=== PATIENT | male | born 1950 | race Caucasian/White ===

== ENCOUNTER 2021-12-07 03:47 | Observation (INO) | payer MEDICARE, OTHER ==
--- NOTE | 2021-12-07 03:59 | ERPHSYRPT ---
- History of Present Illness Source: patient, family Exam Limitations: clinical condition Timing/Duration: day(s), worse (Several days) Severity of Dyspnea-Max: moderate Severity of Dyspnea-Current: moderate Possible Cause: occasional episodes Modifying Factors: Improves With: coughing, oxygen, rest Associated Symptoms: cough, wheezing Hx Influenza Vaccination/Date Given: Yes Hx Pneumococcal Vaccination/Date Given: No <SONIA DODGE - Last Filed: 12/07/21 06:38> <JOE DONNELLY - Last Filed: 12/07/21 07:45> - History of Present Illness Time Seen by Provider: 12/07/21 03:55 Physician History: This is a 71-year-old white male patient of Nohemy Herring nurse practitioner who has a history of oxygen dependent COPD and wears 3 L of oxygen via nasal cannula chronically. Patient states for last several days he has had worsening shortness of breath. Last evening and early this morning symptoms were worse. He does not have significant chest pain. He has no abdominal pain. He has not had a fever. He has no nausea vomiting or diarrhea symptoms. He does have a cough and some wheezing present (SONIA DODGE) Allergies/Adverse Reactions: No Known Drug Allergies Allergy (Verified 12/07/21 04:10) Home Medications: Albuterol/Ipratropium 3ml Neb* [DUONEB 0.5-3 MG/3 ml Neb] 3 ml IH Q6H PRN PRN 12/07/21 [History] Fluticasone/Umeclidin/Vilanter [Trelegy Ellipta 200-62.5-25] 1 each IH DAILY 12/07/21 [History] Latanoprost [Xalatan] 2.5 ml OP HS 12/07/21 [History] Lisinopril/Hydrochlorothiazide [Lisinopril-Hctz 20-12.5 mg Tab] 1 each PO BID 12/07/21 [History] Montelukast Sodium 10 mg [Singulair 10 MG] 10 mg PO DAILY 12/07/21 [History] Vit C/E/Zn/Coppr/Lutein/Zeaxan [Preservision Areds 2 Softgel] 1 each PO DAILY 12/07/21 [History] Travel Risk - International Travel Have you traveled outside of the country in past 3 weeks: No - Coronavirus Screening Are you exhibiting any of the following symptoms?: Yes Symptoms: Cough: New Onset, Shortness of Breath Close contact with a COVID-19 positive Pt in past 14-21 Days: No <SONIA DODGE - Last Filed: 12/07/21 06:38> - Review of Systems Constitutional: No Symptoms Eyes: No Symptoms Ears, Nose, & Throat: No Symptoms Respiratory: Cough, Dyspnea, Wheezing Cardiac: No Symptoms Abdominal/Gastrointestinal: No Symptoms Genitourinary Symptoms: No Symptoms Musculoskeletal: No Symptoms Skin: No Symptoms Neurological: No Symptoms Psychological: No Symptoms Endocrine: No Symptoms Hematologic/Lymphatic: No Symptoms Immunological/Allergic: No Symptoms All Other Systems: Reviewed and Negative <SONIA DODGE - Last Filed: 12/07/21 06:38> - Past Medical History Pertinent Past Medical History: Yes Neurological History: No Pertinent History ENT History: Cataracts, Macular Degeneration Cardiac History: No Pertinent History Respiratory History: Pneumonia Endocrine Medical History: No Pertinent History Musculoskeletal History: Arthritis GI Medical History: No Pertinent History History: No Pertinent History Psycho-Social History: No Pertinent History Male Reproductive Disorders: No Pertinent History - Past Surgical History Past Surgical History: Yes Neuro Surgical History: No Pertinent History Cardiac: No Pertinent History Respiratory: No Pertinent History Gastrointestinal: No Pertinent History Genitourinary: No Pertinent History Musculoskeletal: No Pertinent History Male Surgical History: No Pertinent History - Social History Smoking Status: Current every day smoker Exposure to second hand smoke: Yes Drug Use: none <SONIA DODGE - Last Filed: 12/07/21 06:38> - Physical Exam General Appearance: moderate distress, alert, anxiety Eye Exam: PERRL/EOMI, post op pupil defect (L) Ears, Nose, Throat Exam: hearing grossly normal, normal ENT inspection, normal pharynx Neck Exam: normal inspection, non-tender, supple, full range of motion Respiratory Exam: chest tenderness, respiratory distress, airway intact, wheezing (Expiratory, bilateral) Cardiovascular/Chest Exam: normal heart sounds, regular rate/rhythm Abdominal/Gastrointestinal Exam: soft, normal bowel sounds, No tenderness Rectal Exam: not done Extremity Exam: non-tender, normal range of motion, normal inspection Neurologic Exam: alert, oriented x 3, cooperative, body care manager II-XII nml as tested, normal mood/affect, nml cerebellar function, nml station & gait, sensation nml Skin Exam: normal color, warm, dry Lymphatic Exam: No adenopathy SpO2 Interpretation: normal O2 Delivery: Aerosol Mask <SONIA DODGE - Last Filed: 12/07/21 06:38> - Nursing Vital Signs Nursing Vital Signs: Initial Vital Signs Temperature 98.1 F 12/07/21 03:48 Pulse Rate 104 H 12/07/21 03:48 Respiratory Rate 22 12/07/21 03:48 Blood Pressure 160/93 12/07/21 03:48 O2 Sat by Pulse Oximetry 88 L 12/07/21 03:48 Pain Scale Pain Intensity 0 - Course Nursing assessment & vital signs reviewed: Yes EKG Interpreted by Me: RATE (100), Sinus Rhythm, NORMAL AXIS, NORMAL INTERVALS, NORMAL QRS, NORMAL ST-T, Other (No acute ischemic changes on today's EKG) <SONIA DODGE - Last Filed: 12/07/21 06:38> - Radiology Exams Chest X-ray Interpretation: Reviewed by me, Infiltrates, Other (atelectasis ) - CT Exams Chest CT Interpretation: Tele-radiologist Report, No PE, Other (Infultrates, RUL Nodule) <JOE DONNELLY - Last Filed: 12/07/21 07:45> Ordered Tests: Active Orders 24 hr Category Date Time Status EKG-ER Only STAT Care 12/07/21 03:59 Active IV Insertion STAT Care 12/07/21 03:59 Active Pulse Oximetry (ED) STAT Care 12/07/21 03:59 Active CHEST 1 VIEW (PORTABLE) Stat Exams 12/07/21 03:59 Taken CHEST WITH CONTRAST [CT] Stat Exams 12/07/21 05:12 Taken CBC W DIFF Stat Lab 12/07/21 04:05 Completed CMP Stat Lab 12/07/21 04:05 Completed D-DIMER QUANTITATIVE Stat Lab 12/07/21 04:05 Completed NT PRO BNP Stat Lab 12/07/21 04:05 Completed PROTIME WITH INR Stat Lab 12/07/21 04:05 Completed TROPONIN Q4H Lab 12/07/21 04:05 Completed TROPONIN Q4H Lab 12/07/21 08:00 Ordered TROPONIN Q4H Lab 12/07/21 12:00 Ordered Respiratory Therapy Assessment DAILY RT 12/07/21 04:03 Active Medication Summary Generic Name Dose Route Start Last Admin Trade Name Rita PRN Reason Stop Dose Admin Sodium Chloride 500 mls @ 100 mls/hr 12/07/21 06:00 12/07/21 06:20 Sodium Chloride 0.9% 500 Ml IV 01/06/22 05:59 100 mls/hr .Q5H NICA Administration Piperacillin Sod/Tazobactam 100 mls @ 200 mls/hr 12/07/21 07:10 12/07/21 07:23 Sod 4.5 gm/ Sodium Chloride IV 12/07/21 07:39 200 mls/hr STAT ONE Administration Discontinued Medications Generic Name Dose Route Start Last Admin Trade Name Rita PRN Reason Stop Dose Admin Albuterol Sulfate 2.5 mg 12/07/21 06:32 12/07/21 06:42 Albuterol Sulfate 2.5 Mg/3 Ml Neb 12/07/21 06:33 2.5 mg STAT ONE Administration Albuterol Sulfate Confirm 12/07/21 06:35 Albuterol Sulfate 2.5 Mg/3 Ml Neb Administered 12/07/21 06:36 Dose 2.5 mg IH .STK-MED ONE Albuterol/Ipratropium 3 ml 12/07/21 04:02 12/07/21 03:50 Ipratropium/Albuterol Sulfate 3 Ml Ampul.Neb 12/07/21 04:03 3 ml STAT ONE Administration Methylprednisolone Sodium 0 mg 12/07/21 04:00 12/07/21 04:08 Succinate 125 mg/ Sterile IV 12/07/21 04:01 125 mg Water 2 ml STAT ONE Administration Sodium Chloride Confirm 12/07/21 07:21 Sodium Chloride 100ml Mini-Bag Plus Administered 12/07/21 07:22 Dose 100 mls @ ud IV .STK-MED ONE Lorazepam 1 mg 12/07/21 05:45 12/07/21 06:18 Lorazepam 2 Mg/1 Ml 2 Mg Vial IV 12/07/21 05:46 Not Given STAT ONE Lorazepam Confirm 12/07/21 05:51 Lorazepam 2 Mg/1 Ml 2 Mg Vial Administered 12/07/21 05:52 Dose 2 mg .ROUTE .STK-MED ONE Methylprednisolone Sodium Succinate Confirm 12/07/21 04:08 Methylprednis Sod Succ 125 Mg/2 Ml Vial Administered 12/07/21 04:09 Dose 125 mg .ROUTE .STK-MED ONE Piperacillin Sod/Tazobactam Sod Confirm 12/07/21 07:20 Piperacillin/Tazobactam Sodium 4.5 Gm Vial Administered 12/07/21 07:21 Dose 4.5 gm IV .STK-MED ONE Sterile Water Confirm 12/07/21 04:07 Water For Injection,Sterile 10 Ml Vial Administered 12/07/21 04:08 Dose 10 ml IJ .STK-MED ONE Lab/Rad Data: Laboratory Result Diagrams 12/07/21 04:05 12/07/21 04:05 Laboratory Results 12/07/21 12/07/21 12/07/21 Range/Units 05:00 04:05 04:05 WBC (4.0-10.5) x10^3/uL RBC (4.1-5.6) x10^6/uL Hgb (12.5-18.0) g/dL Hct (42-50) % MCV (78-100) fL MCH (26-32) pg MCHC (32-36) g/dL RDW (11.5-14.0) % Plt Count (150-450) x10^3/uL MPV (7.5-11.0) fL Gran % (36.0-66.0) % Immature Gran % (Auto) (0.00-0.4) % Nucleat RBC Rel Count (0.00-0.1) % Eos # (Auto) (0-0.5) x10^3/uL Immature Gran # (Auto) (0.00-0.03) x10^3u/L Absolute Lymphs (auto) (1.0-4.6) x10^3/uL Absolute Monos (auto) (0.0-1.3) x10^3/uL Absolute Nucleated RBC (0.00-0.01) x10^3u/L Lymphocytes % (24.0-44.0) % Monocytes % (0.0-12.0) % Eosinophils % (0.00-5.0) % Basophils % (0.0-0.4) % Absolute Granulocytes (1.4-6.9) x10^3/uL Basophils # (0-0.4) x10^3/uL PT 11.4 (9.4-12.5) SECONDS INR 1.08 (0.8-3.0) D-Dimer 1.44 H* (0.0-0.50) mg/L Sodium (137-145) mmol/L Potassium (3.5-5.1) mmol/L Chloride (98-107) mmol/L Carbon Dioxide (22-30) mmol/L Anion Gap (5-15) MEQ/L BUN (9-20) mg/dL Creatinine (0.66-1.25) mg/dL Estimated GFR ML/MIN Glucose (74-106) mg/dL Calcium (8.4-10.2) mg/dL Total Bilirubin (0.2-1.3) mg/dL AST (17-59) U/L ALT (0-50) U/L Alkaline Phosphatase (38-126) U/L Troponin I < 0.012 (0.000-0.034) ng/mL NT-Pro-B Natriuret Pep (0-900) pg/mL Serum Total Protein (6.3-8.2) g/dL Albumin (3.5-5.0) g/dL Influenza Type A Ag NEGATIVE (NEGATIVE) Influenza Type B Ag NEGATIVE (NEGATIVE) RSV (PCR) NEGATIVE (Negative) SARS-CoV-2 (PCR) NEGATIVE (NEGATIVE) 12/07/21 12/07/21 Range/Units 04:05 04:05 WBC 10.8 H (4.0-10.5) x10^3/uL RBC 4.62 (4.1-5.6) x10^6/uL Hgb 15.0 (12.5-18.0) g/dL Hct 45.3 (42-50) % MCV 98.1 (78-100) fL MCH 32.5 H (26-32) pg MCHC 33.1 (32-36) g/dL RDW 12.2 (11.5-14.0) % Plt Count 186 (150-450) x10^3/uL MPV 8.8 (7.5-11.0) fL Gran % 74.7 H (36.0-66.0) % Immature Gran % (Auto) 0.6 H (0.00-0.4) % Nucleat RBC Rel Count 0.0 (0.00-0.1) % Eos # (Auto) 0.71 H (0-0.5) x10^3/uL Immature Gran # (Auto) 0.06 H (0.00-0.03) x10^3u/L Absolute Lymphs (auto) 1.24 (1.0-4.6) x10^3/uL Absolute Monos (auto) 0.63 (0.0-1.3) x10^3/uL Absolute Nucleated RBC 0.00 (0.00-0.01) x10^3u/L Lymphocytes % 11.5 L (24.0-44.0) % Monocytes % 5.8 (0.0-12.0) % Eosinophils % 6.6 H (0.00-5.0) % Basophils % 0.8 (0.0-0.4) % Absolute Granulocytes 8.08 H (1.4-6.9) x10^3/uL Basophils # 0.09 (0-0.4) x10^3/uL PT (9.4-12.5) SECONDS INR (0.8-3.0) D-Dimer (0.0-0.50) mg/L Sodium 134 L (137-145) mmol/L Potassium 4.1 (3.5-5.1) mmol/L Chloride 97 L (98-107) mmol/L Carbon Dioxide 31 H (22-30) mmol/L Anion Gap 10.3 (5-15) MEQ/L BUN 16 (9-20) mg/dL Creatinine 0.91 (0.66-1.25) mg/dL Estimated GFR > 60.0 ML/MIN Glucose 117 H (74-106) mg/dL Calcium 9.0 (8.4-10.2) mg/dL Total Bilirubin 0.80 (0.2-1.3) mg/dL AST 24 (17-59) U/L ALT 19 (0-50) U/L Alkaline Phosphatase 107 (38-126) U/L Troponin I (0.000-0.034) ng/mL NT-Pro-B Natriuret Pep 74.1 (0-900) pg/mL Serum Total Protein 7.4 (6.3-8.2) g/dL Albumin 4.1 (3.5-5.0) g/dL Influenza Type A Ag (NEGATIVE) Influenza Type B Ag (NEGATIVE) RSV (PCR) (Negative) SARS-CoV-2 (PCR) (NEGATIVE) - Progress Progress: improved Air Movement: fair Blood Culture(s) Obtained: Yes Counseled pt/family regarding: lab results, diagnosis, need for follow-up, rad results <SONIA DODGE - Last Filed: 12/07/21 06:38> - Progress Progress: re-examined Antibiotics given: Yes Discussed with Dr.: Avinash Will see patient in: hospital (observation) Counseled pt/family regarding: lab results, diagnosis, need for follow-up, rad results <JOE DONNELLY - Last Filed: 12/07/21 07:45> - Progress Progress Note: 12/07/21 05:48 Chest x-ray shows bibasilar scarring versus atelectasis. Medical decision making: This patient presents with shortness of breath. He has a significantly elevated D-dimer. He initially refused the CTA of the chest. After discussing the test with the patient, it turns out that he has a fear of being in enclosed spaces. I gave him the option of not performing a CT of the chest but to have him sign a refusal of test form. I also gave him the option of anticoagulating him today and tomorrow until he is able to obtain a VQ scan on 12/08/2021. I also gave him the option of not doing either test. I advised against not doing any test because he could have a pulmonary embolus, pneumonia or other acute cardiopulmonary process not seen on the chest x-ray. He opted for the CTA of the chest and to receive Ativan prior to obtaining the test. 12/07/21 06:38 Patient care transferred to Dr. Donnelly at 640. He will follow-up on the CTA of the chest and make final disposition. (SONIA DODGE) 12/07/21 06:52 Pt taken over at change of shift from Dr. Dodge, after introduction, discussion of pending imaging read, and current findings and symptom course. Pt is stable and improving. 12/07/21 07:41 Discussed with family and Dr. Vianney covering, and will place pt in on Obs for Tx COPD exacerbation - and advised to f/u PMD for RUL Nodule on CT. 12/07/21 07:43 Pt admission/Obs rationale is that he has a new increased O2 requirement and signs for infection, persisting elevated heart rate during ER observation period of 3-4 hours. (JOE DONNELLY) - Departure Departure Disposition: Home Critical Care Time: No <SONIA DODGE - Last Filed: 12/07/21 06:38> - Departure Departure Disposition: Observation Critical Care Time: No <JOE DONNELLY - Last Filed: 12/07/21 07:45> - Departure Clinical Impression: COPD exacerbation, Rt lung nodule Condition: Stable Referrals: SHE HERRING NP [Primary Care Provider] - Follow up/PCP as directed Instructions: Chronic Obstructive Pulmonary Disease
[2021-12-07] MEDS ORDERED: solu-MEDROL 125 MG, Sterile H2O 10 ml 2 ML IV ONE ×2 (04:00)
[2021-12-07] MEDS ORDERED: DUONEB 0.5-3 MG/3 ml Neb IH ONE (04:02)
[2021-12-07] MEDS ORDERED: Sterile H2O 10 ml IJ ONE (04:07)
[2021-12-07] MEDS ORDERED: solu-MEDROL ONE (04:08)
[2021-12-07 04:38] LABS: Absolute Neutrophil Ct (ANC) 8.08 x10^3/uL (1.4-6.9); Basophil (Absolute #) 0.09 x10^3/uL (0-0.4); Eosinophil % 6.6 % (0.00-5.0); Eosinophil (Absolute #) 0.71 x10^3/uL (0-0.5); Hematocrit 45.3 % (42-50); Lymphocyte (Absolute #) 1.24 x10^3/uL (1.0-4.6); Lymphocytes % 11.5 % (24.0-44.0); Mean Cell Volume 98.1 fL (78-100); Mean Corpuscular Hemoglobin 32.5 pg (26-32); Mean Corpuscular Hgb Concent. 33.1 g/dL (32-36); Mean Platelet Volume 8.8 fL (7.5-11.0); Monocyte (Absolute #) 0.63 x10^3/uL (0.0-1.3); Monocytes % 5.8 % (0.0-12.0); Neutrophil % 74.7 % (36.0-66.0); Platelet Count 186 x10^3/uL (150-450); Red Blood Count 4.62 x10^6/uL (4.1-5.6); Red Cell Distribution Width 12.2 % (11.5-14.0); White Blood Count 10.8 x10^3/uL (4.0-10.5)
[2021-12-07 04:59] LABS: ALBUMIN 4.1 g/dL (3.5-5.0); ALKALINE PHOSPHATASE 107 U/L (38-126); ANION GAP 10.3 MEQ/L (5-15); BLOOD UREA NITROGEN 16 mg/dL (9-20); CHLORIDE 97 mmol/L (98-107); Carbon Dioxide 31 mmol/L (22-30); Creatinine 1 0.91 mg/dL (0.66-1.25); EST GLOMERULAR FILTRATION RATE > 60.0 ML/MIN; Glucose 117 mg/dL (74-106); NT PRO BNP 74.1 pg/mL (0-900); Potassium 4.1 mmol/L (3.5-5.1); SGOT/AST 24 U/L (17-59); SGPT/ALT 19 U/L (0-50); SODIUM 134 mmol/L (137-145); Total Protein 7.4 g/dL (6.3-8.2)
[2021-12-07 05:02] LABS: INR 1.08 (0.8-3.0); PROTIME 11.4 SECONDS (9.4-12.5)
[2021-12-07 05:04] LABS: D-DIMER QUANTITATIVE 1.44 mg/L (0.0-0.50)
[2021-12-07 05:36] LABS: INFLUENZA A NEGATIVE (NEGATIVE); INFLUENZA B NEGATIVE (NEGATIVE); RESPIRATORY SYNCTIAL VIRUS NEGATIVE (Negative); SARS-CoV-2 Xpert Express NEGATIVE (NEGATIVE)
[2021-12-07] MEDS ORDERED: Ativan 2 MG/1 ML VIAL IV ONE (05:45)
[2021-12-07] MEDS ORDERED: Ativan 2 MG/1 ML VIAL ONE (05:51)
[2021-12-07] MEDS ORDERED: Sodium Chloride 0.9% 500 ML 500 ML IV SCH (06:00)
[2021-12-07] MEDS ORDERED: PROVENTIL 2.5 MG/3 ML NEB IH ONE ×2 (06:32→06:35)
[2021-12-07] MEDS ORDERED: PIPERACILLIN/TAZOBACTAM 4.5 GM in Sodium Chloride 100ML MINI-BAG PLUS 100 ML IV ONE (07:10)
[2021-12-07] MEDS ORDERED: PIPERACILLIN/TAZOBACTAM IV ONE (07:20)
[2021-12-07] MEDS ORDERED: Sodium Chloride 100ML MINI-BAG PLUS 100 ML IV ONE (07:21)
--- NOTE | 2021-12-07 07:46 | XRAY ---
Indication: Cough and wheezing. COPD. Comparison: None Portable chest hyperinflated and clear. Heart not enlarged. Bony thorax intact with mild osteopenia and degenerative changes.
--- NOTE | 2021-12-07 07:46 | XRAY ---
Indication: Short of breath and cough. Elevated d-dimer. Multiple contiguous axial images obtained through the chest using 100 cc Isovue 370 contrast and PE protocol. Comparison: None Adequate opacification of the pulmonary arteries. However mild diffuse respiration artifact limits evaluation for pulmonary embolus. No obvious pulmonary embolus. Heart not enlarged. Aorta is mildly arteriosclerotic without aneurysm/dissection. Tiny subcarinal and distal paraesophageal calcified nodes. No pathologic mediastinal/hilar lymphadenopathy. Lungs demonstrates mild emphysema and mild bibasilar subsegmental atelectasis/scarring. 1.3 mm right upper lobe indeterminate noncalcified nodule. No infiltrate or effusion. Bony thorax demonstrates mild osteopenia and moderate degenerative changes throughout the spine. Limited upper abdomen unremarkable. Impression: 1. Respiration artifact limits evaluation for pulmonary embolus. No obvious pulmonary embolus. 2. 1.3 cm indeterminate right upper lobe noncalcified nodule. PET/CT may yield further information. Consider follow-up per Fleischner guidelines. 3. Emphysema and old granulomatous disease. 4. Osteopenia and multilevel degenerative spondylosis. Comment: Preliminary interpretation made by [facility]. No critical discrepancy.
[2021-12-07] MEDS ORDERED: Ativan 0.5 MG PO PRN (08:15)
[2021-12-07] MEDS ORDERED: Sodium Chloride 0.9% 1000 ML 1,000 ML IV SCH ×2 (08:15→10:00)
[2021-12-07] MEDS ORDERED: Ventolin Hfa MDI IH PRN (09:16)
[2021-12-07] MEDS ORDERED: DUONEB 0.5-3 MG/3 ml Neb IH PRN (09:16)
[2021-12-07] MEDS ORDERED: NON-FORMULARY ITEM (Vit C/E/Zn/Coppr/Lutein/Zeaxan [Preservision Areds 2 Softgel] 1 EACH C PO SCH (10:00)
[2021-12-07] MEDS ORDERED: NON-FORMULARY ITEM (Lisinopril/Hydrochlorothiazide [Lisinopril-Hctz 20-12.5 Mg Tab] 1 EACH PO SCH (10:00)
[2021-12-07] MEDS ORDERED: Ocuvite Tablet PO SCH (10:00)
[2021-12-07] MEDS ORDERED: NON-FORMULARY ITEM (Fluticasone/Umeclidin/Vilanter [Trelegy Ellipta 200-62.5-25] 1 EACH Bl IH SCH (10:00)
[2021-12-07] MEDS ORDERED: Singulair 10 MG PO SCH ×2 (10:00→20:00)
[2021-12-07] MEDS ORDERED: Zestril 20 MG*** 20 MG, hydroDIURIL 25 MG*** 12.5 MG PO SCH ×2 (10:00)
[2021-12-07] MEDS ORDERED: PATIENT OWN MEDICATION IH SCH ×2 (10:00→15:00)
[2021-12-07] MEDS: DUONEB 0.5-3 MG/3 ml Neb IH SCH ×4 (10:59→22:40)
[2021-12-07] MEDS: ENOXAPARIN SODIUM SQ SCH (11:18)
[2021-12-07] MEDS: Pepcid 20 MG VIAL IV SCH ×2 (11:18→21:37)
[2021-12-07] MEDS: PIPERACILLIN/TAZOBACTAM 4.5 GM in Sodium Chloride 100ML MINI-BAG PLUS 100 ML IV SCH ×2 (13:03→21:59)
[2021-12-07] MEDS: solu-MEDROL 60 MG, Sterile H2O 10 ml 2 ML IV SCH ×4 (13:03→17:23)
[2021-12-07] MEDS: HUMULIN R SQ PRN ×2 (17:23→21:48)
[2021-12-07] MEDS ORDERED: Flomax 0.4 MG PO SCH (18:00)
[2021-12-07] MEDS: Ocuvite Tablet PO SCH (21:37)
[2021-12-07] MEDS: Zestril 20 MG*** 20 MG, hydroDIURIL 25 MG*** 12.5 MG PO SCH ×2 (21:49)
[2021-12-07] MEDS ORDERED: Xalatan OP SCH (22:00)
[2021-12-08] MEDS: solu-MEDROL 60 MG, Sterile H2O 10 ml 2 ML IV SCH ×4 (00:16→06:14)
[2021-12-08] MEDS: DUONEB 0.5-3 MG/3 ml Neb IH SCH ×3 (02:30→10:51)
[2021-12-08 04:59] LABS: Hematocrit 44.4 % (42-50); Hemoglobin 14.9 g/dL (12.5-18.0); Mean Cell Volume 96.5 fL (78-100); Mean Corpuscular Hemoglobin 32.4 pg (26-32); Mean Corpuscular Hgb Concent. 33.6 g/dL (32-36); Mean Platelet Volume 8.8 fL (7.5-11.0); Platelet Count 198 x10^3/uL (150-450)
[2021-12-08 05:20] LABS: ALBUMIN 4.1 g/dL (3.5-5.0); ALKALINE PHOSPHATASE 100 U/L (38-126); ANION GAP 9.9 MEQ/L (5-15); BLOOD UREA NITROGEN 16 mg/dL (9-20); CHLORIDE 100 mmol/L (98-107); Carbon Dioxide 29 mmol/L (22-30); Creatinine 1 0.75 mg/dL (0.66-1.25); EST GLOMERULAR FILTRATION RATE > 60.0 ML/MIN; Glucose 174 mg/dL (74-106); Potassium 3.8 mmol/L (3.5-5.1); SGOT/AST 24 U/L (17-59); SGPT/ALT 20 U/L (0-50); SODIUM 135 mmol/L (137-145); Total Protein 7.3 g/dL (6.3-8.2)
[2021-12-08] MEDS: PIPERACILLIN/TAZOBACTAM 4.5 GM in Sodium Chloride 100ML MINI-BAG PLUS 100 ML IV SCH (06:13)
[2021-12-08] MEDS: Zestril 20 MG*** 20 MG, hydroDIURIL 25 MG*** 12.5 MG PO SCH ×2 (08:11)
[2021-12-08] MEDS: Ocuvite Tablet PO SCH (08:11)
[2021-12-08] MEDS: HUMULIN R SQ PRN (08:17)
[2021-12-08] MEDS: ENOXAPARIN SODIUM SQ SCH (09:56)
[2021-12-08] MEDS: Pepcid 20 MG VIAL IV SCH (09:56)
[2021-12-08] MEDS ORDERED: solu-MEDROL 60 MG, Sterile H2O 10 ml 2 ML IV SCH ×4 (10:15→18:00)
[2021-12-08 11:16] VITALS: PULSE 96
[2021-12-08 11:47] VITALS: BP 134/69; O2SAT 94
--- NOTE | 2021-12-08 15:12 | PCM.SSS ---
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 Patient states for last several days he has had worsening shortness of breath. Last evening and early this morning symptoms were worse. He does not have significant chest pain. He has no abdominal pain. He has not had a fever. He has no nausea vomiting or diarrhea symptoms. He does have a cough and some wheezing present - Review of Systems Constitutional: No Fever, No Chills Eyes: No Symptoms Ears, Nose, & Throat: No Symptoms Respiratory: Cough, Orthopnea, Short Of Breath Cardiac: No Chest Pain, No Edema, No Syncope Abdominal/Gastrointestinal: No Abdominal Pain, No Nausea, No Vomiting, No Diarrhea Genitourinary Symptoms: No Dysuria Musculoskeletal: No Back Pain, No Neck Pain Skin: No Rash Neurological: No Dizziness, No Focal Weakness, No Sensory Changes Psychological: Anxiety Endocrine: No Symptoms Hematologic/Lymphatic: No Symptoms Immunological/Allergic: No Symptoms Medications & Allergies Home Medications: Home Medication List Albuterol 8 gm Mdi Hfa [Ventolin Hfa MDI] 8 gm IH Q4H PRN PRN 12/07/21 [History Confirmed 12/07/21] Albuterol/Ipratropium 3ml Neb* [DUONEB 0.5-3 MG/3 ml Neb] 3 ml IH Q6H PRN PRN 12/07/21 [History Confirmed 12/07/21] Fluticasone/Umeclidin/Vilanter [Trelegy Ellipta 200-62.5-25] 1 each IH DAILY 12/07/21 [History Confirmed 12/07/21] Latanoprost [Xalatan] 2.5 ml OP HS 12/07/21 [History Confirmed 12/07/21] Lisinopril/Hydrochlorothiazide [Lisinopril-Hctz 20-12.5 mg Tab] 1 each PO BID 12/07/21 [History Confirmed 12/07/21] Montelukast Sodium 10 mg [Singulair 10 MG] 10 mg PO DAILY 12/07/21 [History Confirmed 12/07/21] Tamsulosin HCl 0.4 mg [Flomax 0.4 MG] 0.4 mg PO DAILY 12/07/21 [History Confirmed 12/07/21] Vit C/E/Zn/Coppr/Lutein/Zeaxan [Preservision Areds 2 Softgel] 1 each PO BID 12/07/21 [History Confirmed 12/07/21] Hydroxyzine HCl 25 mg [Atarax 25 mg] 25 mg PO QID PRN #60 tablet 12/08/21 [Rx] Levofloxacin [Levofloxacin 500 MG Tablet] 500 mg PO DAILY 7 Days #7 tablet 12/08/21 [Rx] Methylprednisolone Packet [Medrol Dosepack] 1 pkt PO UD #1 packet 12/08/21 [Rx] Allergies/Adverse Reactions: Allergies Allergy/AdvReac Type Severity Reaction Status Date / Time No Known Drug Allergies Allergy Verified 12/07/21 04:10 - Past Medical History Past Medical History: Yes Neurological History: No Pertinent History ENT History: Cataracts, Macular Degeneration Cardiac History: No Pertinent History, Hypertension Respiratory History: COPD, Emphysema Endocrine Medical History: No Pertinent History Musculoskelatal History: No Pertinent History GI Medical History: No Pertinent History, GERD History: No Pertinent History Pyscho-Social History: No Pertinent History Male Reproductive Disorders: Prostate Problems - Past Surgical History Past Surgical History: Yes Neuro Surgical History: No Pertinent History Cardiac History: No Pertinent History Respiratory Surgery: No Pertinent History GI Surgical History: No Pertinent History Genitourinary Surgical Hx: No Pertinent History Musculskeletal Surgical Hx: No Pertinent History Male Surgical History: No Pertinent History Other Surgical History: colonoscopy - Social History Smoking Status: Current every day smoker How long have you smoked: 50+ Exposure to second hand smoke: Yes Alcohol: None Drug Use: none - Physical Exam Vital Signs: Vital Signs - 24 hr Temp Pulse Resp BP Pulse Ox 12/08/21 11:37 98.2 F 96 H 16 134/69 94 L 12/08/21 10:53 96 H 20 96 12/08/21 07:29 98.0 F 97 H 16 161/74 94 L 12/08/21 07:12 88 18 98 12/08/21 04:00 97.9 F 87 18 140/76 96 10/10/22 02:30 87 18 96 12/07/21 23:56 98.4 F 104 H 22 123/58 94 L 12/07/21 22:40 87 20 94 L 12/07/21 20:00 98.0 F 100 H 22 148/67 92 L 12/07/21 19:02 91 H 20 95 General Appearance: no apparent distress, alert Neurologic Exam: alert, oriented x 3, cooperative, normal mood/affect, nml cerebellar function, nml station & gait, sensation nml, No motor deficits Eye Exam: PERRL/EOMI, eyes nml inspection Ears, Nose, Throat Exam: normal ENT inspection, TMs normal, pharynx normal, moist mucous membranes Neck Exam: normal inspection, non-tender, supple, full range of motion Respiratory Exam: diminished breath sounds, crackles/rales, rhonchi, wheezing, No respiratory distress Cardiovascular Exam: regular rate/rhythm, normal heart sounds, normal peripheral pulses Gastrointestinal/Abdomen Exam: soft, normal bowel sounds, No tenderness, No mass Back Exam: normal inspection, normal range of motion, No CVA tenderness, No vertebral tenderness Extremity Exam: normal inspection, normal range of motion, pelvis stable Skin Exam: normal color, warm, dry, No rash Lymphatic Exam: No adenopathy Results - Labs Lab/Micro Results: Lab Results-Last 24 Hours 12/07/21 12/07/21 12/08/21 Range/Units 16:09 21:10 04:47 WBC 15.0 H (4.0-10.5) x10^3/uL RBC 4.60 (4.1-5.6) x10^6/uL Hgb 14.9 (12.5-18.0) g/dL Hct 44.4 (42-50) % MCV 96.5 (78-100) fL MCH 32.4 H (26-32) pg MCHC 33.6 (32-36) g/dL RDW 12.0 (11.5-14.0) % Plt Count 198 (150-450) x10^3/uL MPV 8.8 (7.5-11.0) fL Sodium (137-145) mmol/L Potassium (3.5-5.1) mmol/L Chloride (98-107) mmol/L Carbon Dioxide (22-30) mmol/L Anion Gap (5-15) MEQ/L BUN (9-20) mg/dL Creatinine (0.66-1.25) mg/dL Estimated GFR ML/MIN Glucose (74-106) mg/dL POC Glucometer 206 H 246 H (74 to 106) mg/dL Calcium (8.4-10.2) mg/dL Total Bilirubin (0.2-1.3) mg/dL AST (17-59) U/L ALT (0-50) U/L Alkaline Phosphatase (38-126) U/L Serum Total Protein (6.3-8.2) g/dL Albumin (3.5-5.0) g/dL Procalcitonin (0.030-0.080) ng/mL 12/08/21 12/08/21 12/08/21 Range/Units 04:47 04:47 07:55 WBC (4.0-10.5) x10^3/uL RBC (4.1-5.6) x10^6/uL Hgb (12.5-18.0) g/dL Hct (42-50) % MCV (78-100) fL MCH (26-32) pg MCHC (32-36) g/dL RDW (11.5-14.0) % Plt Count (150-450) x10^3/uL MPV (7.5-11.0) fL Sodium 135 L (137-145) mmol/L Potassium 3.8 (3.5-5.1) mmol/L Chloride 100 (98-107) mmol/L Carbon Dioxide 29 (22-30) mmol/L Anion Gap 9.9 (5-15) MEQ/L BUN 16 (9-20) mg/dL Creatinine 0.75 (0.66-1.25) mg/dL Estimated GFR > 60.0 ML/MIN Glucose 174 H (74-106) mg/dL POC Glucometer 163 H (74 to 106) mg/dL Calcium 9.0 (8.4-10.2) mg/dL Total Bilirubin 0.40 (0.2-1.3) mg/dL AST 24 (17-59) U/L ALT 20 (0-50) U/L Alkaline Phosphatase 100 (38-126) U/L Serum Total Protein 7.3 (6.3-8.2) g/dL Albumin 4.1 (3.5-5.0) g/dL Procalcitonin 0.065 (0.030-0.080) ng/mL 12/08/21 Range/Units 11:45 WBC (4.0-10.5) x10^3/uL RBC (4.1-5.6) x10^6/uL Hgb (12.5-18.0) g/dL Hct (42-50) % MCV (78-100) fL MCH (26-32) pg MCHC (32-36) g/dL RDW (11.5-14.0) % Plt Count (150-450) x10^3/uL MPV (7.5-11.0) fL Sodium (137-145) mmol/L Potassium (3.5-5.1) mmol/L Chloride (98-107) mmol/L Carbon Dioxide (22-30) mmol/L Anion Gap (5-15) MEQ/L BUN (9-20) mg/dL Creatinine (0.66-1.25) mg/dL Estimated GFR ML/MIN Glucose (74-106) mg/dL POC Glucometer 122 H (74 to 106) mg/dL Calcium (8.4-10.2) mg/dL Total Bilirubin (0.2-1.3) mg/dL AST (17-59) U/L ALT (0-50) U/L Alkaline Phosphatase (38-126) U/L Serum Total Protein (6.3-8.2) g/dL Albumin (3.5-5.0) g/dL Procalcitonin (0.030-0.080) ng/mL Accuchecks Date 12/08/21 Date 12/08/21 Time 11:47 Time 08:13 - Radiology Impressions Radiology Exams & Impressions: Radiology Procedures Category Date Time Status CHEST 1 VIEW (PORTABLE) Stat Exams 12/07/21 03:59 Completed CHEST WITH CONTRAST [CT] Stat Exams 12/07/21 05:12 Completed Assessment/Plan (1) COPD exacerbation Status: Acute Assessment & Plan: Chief Complaint Diagnosis COPD EXACERBATION, RUL NODULE Allergies Allergy/AdvReac Type Severity Reaction Status Date / Time No Known Drug Allergies Allergy Verified 12/07/21 04:10 Vital Signs (Last 24 hours) Temp Pulse Resp BP Pulse Ox 12/08/21 11:37 98.2 F 96 H 16 134/69 94 L 12/08/21 10:53 96 H 20 96 12/08/21 07:29 98.0 F 97 H 16 161/74 94 L 12/08/21 07:12 88 18 98 12/08/21 04:00 97.9 F 87 18 140/76 96 12/08/21 02:30 87 18 96 12/07/21 23:56 98.4 F 104 H 22 123/58 94 L 12/07/21 22:40 87 20 94 L 12/07/21 20:00 98.0 F 100 H 22 148/67 92 L 12/07/21 19:02 91 H 20 95 Home Medications Medication Instructions Recorded Confirmed Last Taken Type Albuterol 8 gm Mdi Hfa 8 gm IH Q4H PRN PRN 12/07/21 12/07/21 Unknown History [Ventolin Hfa MDI] Albuterol/Ipratropium 3ml Neb* 3 ml IH Q6H PRN PRN 12/07/21 12/07/21 12/06/21 History [DUONEB 0.5-3 MG/3 ml Neb] Fluticasone/Umeclidin/Vilanter 1 each IH DAILY 12/07/21 12/07/21 12/06/21 Histor y [Trelegy Ellipta 200-62.5-25] Latanoprost [Xalatan] 2.5 ml OP HS 12/07/21 12/07/21 12/06/21 History Lisinopril/Hydrochlorothiazide 1 each PO BID 12/07/21 12/07/21 12/07/21 08:00 History [Lisinopril-Hctz 20-12.5 mg Tab] Montelukast Sodium 10 mg 10 mg PO DAILY 12/07/21 12/07/21 12/06/21 History [Singulair 10 MG] Tamsulosin HCl 0.4 mg [Flomax 0.4 mg PO DAILY 12/07/21 12/07/21 12/06/21 History 0.4 MG] Vit C/E/Zn/Coppr/Lutein/Zeaxan 1 each PO BID 12/07/21 12/07/2112/07/22 08:00 History [Preservision Areds 2 Softgel] Hydroxyzine HCl 25 mg [Atarax 25 mg PO QID PRN #60 tablet 12/08/21 Unknown Rx 25 mg] Levofloxacin [Levofloxacin 500 500 mg PO DAILY 7 Days #7 tablet 12/08/21 Unknown Rx MG Tablet] Methylprednisolone Packet 1 pkt PO UD #1 packet 12/08/21 Unknown Rx [Medrol Dosepack] Current Medications Discontinued Medications Generic Name Dose Route Start Last Admin Trade Name Freq PRN Reason Stop Dose Admin Albuterol Sulfate 2.5 mg 12/07/21 06:32 12/07/21 06:42 Albuterol Sulfate 2.5 Mg/3 Ml [facility] 12/07/21 06:33 2.5 mg STAT ONE Administration Albuterol Sulfate Confirm 12/07/21 06:35 Albuterol Sulfate 2.5 Mg/3 Ml Neb Administered 12/07/21 06:36 Dose 2.5 mg IH .STK-MED ONE Albuterol/Ipratropium 3 ml 12/07/21 04:02 12/07/21 03:50 Ipratropium/Albuterol Sulfate 3 Ml Ampul.[facility] 12/07/21 04:03 3 ml STAT ONE Administration Albuterol/Ipratropium 3 ml 12/07/21 11:00 12/08/21 10:51 Ipratropium/Albuterol Sulfate 3 Ml Ampul.[facility] 01/06/22 10:59 3 ml Q4HRT NICA Administration Methylprednisolone Sodium 0 mg 12/07/21 04:00 12/07/21 04:08 Succinate 125 mg/ Sterile IV 12/07/21 04:01 125 mg Water 2 ml STAT ONE Administration Methylprednisolone Sodium 0 mg 12/07/21 12:00 12/08/21 06:14 Succinate 60 mg/ Sterile Water IV 01/06/22 11:59 60 mg 2 ml Q6HT NICA Administration Lisinopril 20 mg/ 0 mg 12/07/21 10:00 12/07/21 11:50 Hydrochlorothiazide 12.5 mg PO 01/06/22 09:59 Not Given BID NICA Lisinopril 20 mg/ 0 mg 12/07/21 20:00 12/08/21 08:11 Hydrochlorothiazide 12.5 mg PO 01/06/22 09:59 20 mg BID@0800,2000 NICA Administration Methylprednisolone Sodium 0 mg 12/08/21 10:15 12/08/21 12:06 Succinate 60 mg/ Sterile Water IV 01/07/22 10:14 Not Given 2 ml Q12H NICA Methylprednisolone Sodium 0 mg 12/08/21 18:00 Succinate 60 mg/ Sterile Water IV 01/07/22 10:14 2 ml 0600,1800 NICA Enoxaparin Sodium 40 mg 12/07/21 10:00 12/08/21 09:56 Enoxaparin Sodium 40 Mg/0.4 Ml Syringe SQ 01/06/22 09:59 40 mg DAILY NICA Administration Famotidine 20 mg 12/07/21 10:00 12/08/21 09:56 Famotidine 20 Mg/1 Vial IV 01/06/22 09:59 20 mg Q12HT NICA Administration Sodium Chloride 500 mls @ 100 mls/hr 12/07/21 06:00 12/07/21 06:20 Sodium Chloride 0.9% 500 Ml IV 01/06/22 05:59 100 mls/hr .Q5H NICA Administration Piperacillin Sod/Tazobactam 100 mls @ 200 mls/hr 12/07/21 07:10 12/07/21 07:23 Sod 4.5 gm/ Sodium Chloride IV 12/07/21 07:39 200 mls/hr STAT ONE Administration Sodium Chloride Confirm 12/07/21 07:21 Sodium Chloride 100ml Mini-Bag Plus Administered 12/07/21 07:22 Dose 100 mls @ ud IV .STK-MED ONE Sodium Chloride 1,000 mls @ 50 mls/hr 12/07/21 08:15 12/07/21 17:22 Sodium Chloride 0.9% 1000 Ml IV 01/06/22 08:14 50 mls/hr .Q20H NICA Administration Piperacillin Sod/Tazobactam 100 mls @ 200 mls/hr 12/07/21 14:00 12/08/21 06:13 Sod 4.5 gm/ Sodium Chloride IV 01/06/22 13:59 200 mls/hr Q8HT NICA Administration Insulin Human Regular 0 unit 12/07/21 08:15 12/08/21 08:17 Insulin Regular, Human 1 Unit SQ 01/06/22 08:14 3 unit UD PRN Administration HYPERGLYCEMIA Latanoprost 0 ml 12/07/21 22:00 12/08/21 00:22 Latanoprost 2.5 Ml Bottle OP 01/06/22 21:59 1 ml HS NICA Administration Lorazepam 1 mg 12/07/21 05:45 12/07/21 06:18 Lorazepam 2 Mg/1 Ml 2 Mg Vial IV 12/07/21 05:46 Not Given STAT ONE Lorazepam Confirm 12/07/21 05:51 Lorazepam 2 Mg/1 Ml 2 Mg Vial Administered 12/07/21 05:52 Dose 2 mg .ROUTE .STK-MED ONE Lorazepam 0.5 mg 12/07/21 08:15 Lorazepam 0.5 Mg Tablet PO 01/06/22 08:14 Q6H PRN PRN ANXIETY Methylprednisolone Sodium Succinate Confirm 12/07/21 04:08 Methylprednis Sod Succ 125 Mg/2 Ml Vial Administered 12/07/21 04:09 Dose 125 mg .ROUTE .STK-MED ONE Montelukast Sodium 10 mg 12/07/21 10:00 12/07/21 11:50 Montelukast Sodium 10 Mg Tablet PO 01/06/22 09:59 Not Given DAILY [facility] Montelukast Sodium 10 mg 12/07/21 20:00 12/07/21 21:51 Montelukast Sodium 10 Mg Tablet PO 01/06/22 09:59 10 mg DAILY@1999 [facility] Administration Multivitamins/Minerals 1 tab 12/07/21 10:00 12/07/21 11:50 Beta-Carotene(A) W-C And E/Min 1 Tab Tablet PO 01/06/22 09:59 Not Given DAILY [facility] Multivitamins/Minerals 1 tab 12/07/21 20:00 12/08/21 08:11 Beta-Carotene(A) W-C And E/Min 1 Tab Tablet PO 01/06/22 19:59 1 tab BID@08,1999 [facility] Administration Patient Own Med : 0 each 12/07/21 10:00 12/07/21 11:50 Trelegy IH 01/06/22 09:59 Not Given DAILY [facility] Patient Own Medication 0 each 12/07/21 15:00 12/07/21 14:53 Patient Own Med Misc IH 01/06/22 14:59 1 each DAILY NICA Administration Piperacillin Sod/Tazobactam Sod Confirm 12/07/21 07:20 Piperacillin/Tazobactam Sodium 4.5 Gm Vial Administered 12/07/21 07:21 Dose 4.5 gm IV .STK-MED ONE Sterile Water Confirm 12/07/21 04:07 Water For Injection,Sterile 10 Ml Vial Administered 12/07/21 04:08 Dose 10 ml IJ .STK-MED ONE Tamsulosin HCl 0.4 mg 12/07/21 18:00 12/07/21 17:23 Tamsulosin Hcl 0.4 Mg Cap PO 01/06/22 17:59 0.4 mg DAILY@1800 NICA Administration Intake & Output (Last 24 hours) 12/06/21 12/07/21 12/08/21 12/09/21 11:59 11:59 11:59 11:59 Intake Total 480 3072 585 Balance 480 3072 585 Weight 96.1 kg Laboratory Results (Last 24 hours) 12/08/21 12/08/21 12/08/21 11:45 07:55 04:47 WBC RBC Hgb Hct MCV MCH MCHC RDW Plt Count MPV Sodium Potassium Chloride Carbon Dioxide Anion Gap BUN Creatinine Estimated GFR Glucose POC Glucometer 122 H 163 H Calcium Total Bilirubin AST ALT Alkaline Phosphatase Serum Total Protein Albumin Procalcitonin 0.065 12/08/21 12/08/21 12/07/21 04:47 04:47 21:10 WBC 15.0 H RBC 4.60 Hgb 14.9 Hct 44.4 MCV 96.5 MCH 32.4 H MCHC 33.6 RDW 12.0 Plt Count 198 MPV 8.8 Sodium 135 L Potassium 3.8 Chloride 100 Carbon Dioxide 29 Anion Gap 9.9 BUN 16 Creatinine 0.75 Estimated GFR > 60.0 Glucose 174 H POC Glucometer 246 H Calcium 9.0 Total Bilirubin 0.40 AST 24 ALT 20 Alkaline Phosphatase 100 Serum Total Protein 7.3 Albumin 4.1 Procalcitonin 12/07/21 16:09 WBC RBC Hgb Hct MCV MCH MCHC RDW Plt Count MPV Sodium Potassium Chloride Carbon Dioxide Anion Gap BUN Creatinine Estimated GFR Glucose POC Glucometer 206 H Calcium Total Bilirubin AST ALT Alkaline Phosphatase Serum Total Protein Albumin Procalcitonin Orders (Last 24 hours) Category Date Time Status Discharge Routine Discharge 12/08/21 Ordered Discharge/Telephone Order Routine Discharge 12/08/21 Active CBC AM.LAB Lab 12/08/21 04:47 Completed CMP AM.LAB Lab 12/08/21 04:47 Completed POCT GLUCOSE Stat Lab 12/07/21 16:09 Completed POCT GLUCOSE Stat Lab 12/07/21 21:10 Completed POCT GLUCOSE Stat Lab 12/08/21 07:55 Completed POCT GLUCOSE Stat Lab 12/08/21 11:45 Completed PROCALCITONIN Urgent Lab 12/08/21 04:47 Completed Beta-Carotene(A) W-C & E/Min [Ocuvite Tablet] Med 12/07/21 20:00 Discontinued 1 tab PO BID@0800,1999 Latanoprost [Xalatan] Med 12/07/21 22:00 Discontinued 0 ml OP HS Lisinopril 20 mg [Zestril 20 MG] 20 mg Med 12/07/21 20:00 Discontinued Hydrochlorothiazide 25 mg [hydroDIURIL 25 MG] 12. 5 mg PO BID@0800,2000 Methylprednis Sod Succ 125 mg* [solu-MEDROL] 60 mg Med 12/08/21 18:00 Discontinued Water For Injection,Sterile [Sterile H2O 10 ml] 2 ml IV 0600,1800 Methylprednis Sod Succ 125 mg* [solu-MEDROL] 60 mg Med 12/08/21 10:15 Discontinued Water For Injection,Sterile [Sterile H2O 10 ml] 2 ml IV Q12H Montelukast Sodium 10 mg [Singulair 10 MG] Med 12/07/21 20:00 Discontinued 10 mg PO DAILY@2000 Patient Own Med [Patient Own Medication] Med 12/07/21 15:00 Discontinued See Dose Instructions IH DAILY Tamsulosin HCl 0.4 mg [Flomax 0.4 MG] Med 12/07/21 18:00 Discontinued 0.4 mg PO DAILY@1800 Respiratory MDI UD RT 12/07/21 14:54 Completed Patient Care Notes (Last 24 hours) 12/08/21 09:55 (created 12/08/21 10:24) Case Management Note by Yoselyn Ellison SPOKE WITH DR FLORES AND UPDATED ON PT STATUS. REPORTS THAT HE WILL BE HERE AROUND NOON TO ROUND. N/O TO DECREASE STEROID TO 60MG IV Q12H. Initialized on 12/08/21 10:24 - END OF NOTE Code(s): J44.1 - CHRONIC OBSTRUCTIVE PULMONARY DISEASE W (ACUTE) EXACERBATION (2) Hypertension Status: Acute Qualifiers: Hypertension type: primary hypertension Qualified Code(s): I10 - Essential (primary) hypertension Code(s): I10 - ESSENTIAL (PRIMARY) HYPERTENSION (3) Anxiety about health Status: Acute Code(s): F41.8 - OTHER SPECIFIED ANXIETY DISORDERS Hospital Summary - Hospital Course Hospital Course: Chief Complaint Diagnosis COPD EXACERBATION, RUL NODULE Allergies Allergy/AdvReac Type Severity Reaction Status Date / Time No Known Drug Allergies Allergy Verified 12/07/21 04:10 Vital Signs (Last 24 hours) Temp Pulse Resp BP Pulse Ox 12/08/21 11:37 98.2 F 96 H 16 134/69 94 L 12/08/21 10:53 96 H 20 96 12/08/21 07:29 98.0 F 97 H 16 161/74 94 L 12/08/21 07:12 88 18 98 12/08/21 04:00 97.9 F 87 18 140/76 96 12/08/21 02:30 87 18 96 12/07/21 23:56 98.4 F 104 H 22 123/58 94 L 12/07/21 22:40 87 20 94 L 12/07/21 20:00 98.0 F 100 H 22 148/67 92 L 12/07/21 19:02 91 H 20 95 Home Medications Medication Instructions Recorded Confirmed Last Taken Type Albuterol 8 gm Mdi Hfa 8 gm IH Q4H PRN PRN 12/07/21 12/07/21 Unknown History [Ventolin Hfa MDI] Albuterol/Ipratropium 3ml Neb* 3 ml IH Q6H PRN PRN 12/07/21 12/07/21 12/06/21 History [DUONEB 0.5-3 MG/3 ml Neb] Fluticasone/Umeclidin/Vilanter 1 each IH DAILY 12/07/21 12/07/21 12/06/21 History [Trelegy Ellipta 200-62.5-25] Latanoprost [Xalatan] 2.5 ml OP HS 12/07/21 12/07/21 12/06/21 History Lisinopril/Hydrochlorothiazide 1 each PO BID 12/07/21 12/07/21 12/07/21 08:00 History [Lisinopril-Hctz 20-12.5 mg Tab] Montelukast Sodium 10 mg 10 mg PO DAILY 12/07/21 12/07/21 12/06/21 History [Singulair 10 MG] Tamsulosin HCl 0.4 mg [Flomax 0.4 mg PO DAILY 12/07/21 12/07/21 12/06/21 History 0.4 MG] Vit C/E/Zn/Coppr/Lutein/Zeaxan 1 each PO BID 12/07/21 12/07/21 12/07/21 08:00 History [Preservision Areds 2 Softgel] Hydroxyzine HCl 25 mg [Atarax 25 mg PO QID PRN #60 tablet 12/08/21 Unknown Rx 25 mg] Levofloxacin [Levofloxacin 500 500 mg PO DAILY 7 Days #7 tablet 12/08/21 Unknown Rx MG Tablet] Methylprednisolone Packet 1 pkt PO UD #1 packet 12/08/21 Unknown Rx [Medrol Dosepack] Current Medications Discontinued Medications Generic Name Dose Route Start Last Admin Trade Name Freq PRN Reason Stop Dose Admin Albuterol Sulfate 2.5 mg 12/07/21 06:32 12/07/21 06:42 Albuterol Sulfate 2.5 Mg/3 Ml Neb 12/07/21 06:33 2.5 mg STAT ONE Administration Albuterol Sulfate Confirm 12/07/21 06:35 Albuterol Sulfate 2.5 Mg/3 Ml Neb Administered 12/07/21 06:36 Dose 2.5 mg IH .STK-MED ONE Albuterol/Ipratropium 3 ml 12/07/21 04:02 12/07/21 03:50 Ipratropium/Albuterol Sulfate 3 Ml Ampul.Neb IH 12/07/21 04:03 3 ml STAT ONE Administration Albuterol/Ipratropium 3 ml 12/07/21 11:00 12/08/21 10:51 Ipratropium/Albuterol Sulfate 3 Ml Ampul.Neb IH 01/06/22 10:59 3 ml Q4HRT NICA Administration Methylprednisolone Sodium 0 mg 12/07/21 04:00 12/07/21 04:08 Succinate 125 mg/ Sterile IV 12/07/21 04:01 125 mg Water 2 ml STAT ONE Administration Methylprednisolone Sodium 0 mg 12/07/21 12:00 12/08/21 06:14 Succinate 60 mg/ Sterile Water IV 01/06/22 11:59 60 mg 2 ml Q6HT NICA Administration Lisinopril 20 mg/ 0 mg 12/07/21 10:00 12/07/21 11:50 Hydrochlorothiazide 12.5 mg PO 01/06/22 09:59 Not Given BID NICA Lisinopril 20 mg/ 0 mg 12/07/21 20:00 12/08/21 08:11 Hydrochlorothiazide 12.5 mg PO 01/06/22 09:59 20 mg BID@0800,2000 NICA Administration Methylprednisolone Sodium 0 mg 12/08/21 10:15 12/08/21 12:06 Succinate 60 mg/ Sterile Water IV 01/07/22 10:14 Not Given 2 ml Q12H NICA Methylprednisolone Sodium 0 mg 12/08/21 18:00 Succinate 60 mg/ Sterile Water IV 01/07/22 10:14 2 ml 0600,1800 NICA Enoxaparin Sodium 40 mg 12/07/21 10:00 12/08/21 09:56 Enoxaparin Sodium 40 Mg/0.4 Ml Syringe SQ 01/06/22 09:59 40 mg DAILY NICA Administration Famotidine 20 mg 12/07/21 10:00 12/08/21 09:56 Famotidine 20 Mg/1 Vial IV 01/06/22 09:59 20 mg Q12HT NICA Administration Sodium Chloride 500 mls @ 100 mls/hr 12/07/21 06:00 12/07/21 06:20 Sodium Chloride 0.9% 500 Ml IV 01/06/22 05:59 100 mls/hr .Q5H NICA Administration Piperacillin Sod/Tazobactam 100 mls @ 200 mls/hr 12/07/21 07:10 12/07/21 07:23 Sod 4.5 gm/ Sodium Chloride IV 12/07/21 07:39 200 mls/hr STAT ONE Administration Sodium Chloride Confirm 12/07/21 07:21 Sodium Chloride 100ml Mini-Bag Plus Administered 12/07/21 07:22 Dose 100 mls @ ud IV .STK-MED ONE Sodium Chloride 1,000 mls @ 50 mls/hr 12/07/21 08:15 12/07/21 17:22 Sodium Chloride 0.9% 1000 Ml IV 01/06/22 08:14 50 mls/hr .Q20H NICA Administration Piperacillin Sod/Tazobactam 100 mls @ 200 mls/hr 12/07/21 14:00 12/08/21 06:13 Sod 4.5 gm/ Sodium Chloride IV 01/06/22 13:59 200 mls/hr Q8HT NICA Administration Insulin Human Regular 0 unit 12/07/21 08:15 12/08/21 08:17 Insulin Regular, Human 1 Unit SQ 01/06/22 08:14 3 unit UD PRN Administration HYPERGLYCEMIA Latanoprost 0 ml 12/07/21 22:00 12/08/21 00:22 Latanoprost 2.5 Ml Bottle OP 01/06/22 21:59 1 ml HS NICA Administration Lorazepam 1 mg 12/07/21 05:45 12/07/21 06:18 Lorazepam 2 Mg/1 Ml 2 Mg Vial IV 12/07/21 05:46 Not Given STAT ONE Lorazepam Confirm 12/07/21 05:51 Lorazepam 2 Mg/1 Ml 2 Mg Vial Administered 12/07/21 05:52 Dose 2 mg .ROUTE .STK-MED ONE Lorazepam 0.5 mg 12/07/21 08:15 Lorazepam 0.5 Mg Tablet PO 01/06/22 08:14 Q6H PRN PRN ANXIETY Methylprednisolone Sodium Succinate Confirm 12/07/21 04:08 Methylprednis Sod Succ 125 Mg/2 Ml Vial Administered 12/07/21 04:09 Dose 125 mg .ROUTE .STK-MED ONE Montelukast Sodium 10 mg 12/07/21 10:00 12/07/21 11:50 Montelukast Sodium 10 Mg Tablet PO 01/06/22 09:59 Not Given DAILY NICA Montelukast Sodium 10 mg 12/07/21 20:00 12/07/21 21:51 Montelukast Sodium 10 Mg Tablet PO 01/06/22 09:59 10 mg DAILY@1999 [facility] Administration Multivitamins/Minerals 1 tab 12/07/21 10:00 12/07/21 11:50 Beta-Carotene(A) W-C And E/Min 1 Tab Tablet PO 01/06/22 09:59 Not Given DAILY [facility] Multivitamins/Minerals 1 tab 12/07/21 20:00 12/08/21 08:11 Beta-Carotene(A) W-C And E/Min 1 Tab Tablet PO 01/06/22 19:59 1 tab BID@0800,1999 [facility] Administration Patient Own Med : 0 each 12/07/21 10:00 12/07/21 11:50 Trelegy IH 01/06/22 09:59 Not Given DAILY [facility] Patient Own Medication 0 each 12/07/21 15:00 12/07/21 14:53 Patient Own Med Misc IH 01/06/22 14:59 1 each DAILY [facility] Administration Piperacillin Sod/Tazobactam Sod Confirm 12/07/21 07:20 Piperacillin/Tazobactam Sodium 4.5 Gm Vial Administered 12/07/21 07:21 Dose 4.5 gm IV .STK-MED ONE Sterile Water Confirm 12/07/21 04:07 Water For Injection,Sterile 10 Ml Vial Administered 12/07/21 04:08 Dose 10 ml IJ .STK-MED ONE Tamsulosin HCl 0.4 mg 12/07/21 18:00 12/07/21 17:23 Tamsulosin Hcl 0.4 Mg Cap PO 01/06/22 17:59 0.4 mg DAILY@1800 [facility] Administration Intake & Output (Last 24 hours) 12/06/21 12/07/21 12/08/21 12/09/21 11:59 11:59 11:59 11:59 Intake Total 480 3072 585 Balance 480 3072 585 Weight 96.1 kg Laboratory Results (Last 24 hours) 12/08/21 12/08/21 12/08/21 11:45 07:55 04:47 WBC RBC Hgb Hct MCV MCH MCHC RDW Plt Count MPV Sodium Potassium Chloride Carbon Dioxide Anion Gap BUN Creatinine Estimated GFR Glucose POC Glucometer 122 H 163 H Calcium Total Bilirubin AST ALT Alkaline Phosphatase Serum Total Protein Albumin Procalcitonin 0.065 12/08/21 12/08/21 12/07/21 04:47 04:47 21:10 WBC 15.0 H RBC 4.60 Hgb 14.9 Hct 44.4 MCV 96.5 MCH 32.4 H MCHC 33.6 RDW 12.0 Plt Count 198 MPV 8.8 Sodium 135 L Potassium 3.8 Chloride 100 Carbon Dioxide 29 Anion Gap 9.9 BUN 16 Creatinine 0.75 Estimated GFR > 60.0 Glucose 174 H POC Glucometer 246 H Calcium 9.0 Total Bilirubin 0.40 AST 24 ALT 20 Alkaline Phosphatase 100 Serum Total Protein 7.3 Albumin 4.1 Procalcitonin 12/07/21 16:09 WBC RBC Hgb Hct MCV MCH MCHC RDW Plt Count MPV Sodium Potassium Chloride Carbon Dioxide Anion Gap BUN Creatinine Estimated GFR Glucose POC Glucometer 206 H Calcium Total Bilirubin AST ALT Alkaline Phosphatase Serum Total Protein Albumin Procalcitonin Orders (Last 24 hours) Category Date Time Status Discharge Routine Discharge 12/08/21 Ordered Discharge/Telephone Order Routine Discharge 12/08/21 Active CBC AM.LAB Lab 12/08/21 04:47 Completed CMP AM.LAB Lab 12/08/21 04:47 Completed POCT GLUCOSE Stat Lab 12/07/21 16:09 Completed POCT GLUCOSE Stat Lab 12/07/21 21:10 Completed POCT GLUCOSE Stat Lab 12/08/21 07:55 Completed POCT GLUCOSE Stat Lab 12/08/21 11:45 Completed PROCALCITONIN Urgent Lab 12/08/21 04:47 Completed Beta-Carotene(A) W-C & E/Min [Ocuvite Tablet] Med 12/07/21 20:00 Discontinued 1 tab PO BID@799,1999 Latanoprost [Xalatan] Med 12/07/21 22:00 Discontinued 0 ml OP HS Lisinopril 20 mg [Zestril 20 MG] 20 mg Med 12/07/21 20:00 Discontinued Hydrochlorothiazide 25 mg [hydroDIURIL 25 MG] 12. 5 mg PO BID@0800,1999 Methylprednis Sod Succ 125 mg* [solu-MEDROL] 60 mg Med 12/08/21 18:00 Discontinued Water For Injection,Sterile [Sterile H2O 10 ml] 2 ml IV 0600,1800 Methylprednis Sod Succ 125 mg* [solu-MEDROL] 60 mg Med 12/08/21 10:15 Discontinued Water For Injection,Sterile [Sterile H2O 10 ml] 2 ml IV Q12H Montelukast Sodium 10 mg [Singulair 10 MG] Med 12/07/21 20:00 Discontinued 10 mg PO DAILY@2000 Patient Own Med [Patient Own Medication] Med 12/07/21 15:00 Discontinued See Dose Instructions IH DAILY Tamsulosin HCl 0.4 mg [Flomax 0.4 MG] Med 12/07/21 18:00 Discontinued 0.4 mg PO DAILY@1800 Respiratory MDI UD RT 12/07/21 14:54 Completed Patient Care Notes (Last 24 hours) 12/08/21 09:55 (created 12/08/21 10:24) Case Management Note by Yoselyn Ellison SPOKE WITH DR FLORES AND UPDATED ON PT STATUS. REPORTS THAT HE WILL BE HERE AROUND NOON TO ROUND. N/O TO DECREASE STEROID TO 60MG IV Q12H. Initialized on 12/08/21 10:24 - END OF NOTE - Vitals & Intake/Output Vital Signs: Vital Signs Temperature 98.2 F 12/08/21 11:37 Pulse Rate 96 H 12/08/21 11:37 Respiratory Rate 16 12/08/21 11:37 Blood Pressure 134/69 12/08/21 11:37 O2 Sat by Pulse Oximetry 94 L 12/08/21 11:37 Intake & Output: Intake & Output 12/06/21 12/07/21 12/08/21 12/09/21 11:59 11:59 11:59 11:59 Intake Total 480 3072 585 Balance 480 3072 585 Weight 96.1 kg - Lab Result Diagrams: 12/08/21 04:47 12/08/21 04:47 Lab Results-Last 24 Hrs: Lab Results-Last 24 Hours 12/07/21 12/07/21 12/08/21 Range/Units 16:09 21:10 04:47 WBC 15.0 H (4.0-10.5) x10^3/uL RBC 4.60 (4.1-5.6) x10^6/uL Hgb 14.9 (12.5-18.0) g/dL Hct 44.4 (42-50) % MCV 96.5 (78-100) fL MCH 32.4 H (26-32) pg MCHC 33.6 (32-36) g/dL RDW 12.0 (11.5-14.0) % Plt Count 198 (150-450) x10^3/uL MPV 8.8 (7.5-11.0) fL Sodium (137-145) mmol/L Potassium (3.5-5.1) mmol/L Chloride (98-107) mmol/L Carbon Dioxide (22-30) mmol/L Anion Gap (5-15) MEQ/L BUN (9-20) mg/dL Creatinine (0.66-1.25) mg/dL Estimated GFR ML/MIN Glucose (74-106) mg/dL POC Glucometer 206 H 246 H (74 to 106) mg/dL Calcium (8.4-10.2) mg/dL Total Bilirubin (0.2-1.3) mg/dL AST (17-59) U/L ALT (0-50) U/L Alkaline Phosphatase (38-126) U/L Serum Total Protein (6.3-8.2) g/dL Albumin (3.5-5.0) g/dL Procalcitonin (0.030-0.080) ng/mL 12/08/21 12/08/21 12/08/21 Range/Units 04:47 04:47 07:55 WBC (4.0-10.5) x10^3/uL RBC (4.1-5.6) x10^6/uL Hgb (12.5-18.0) g/dL Hct (42-50) % MCV (78-100) fL MCH (26-32) pg MCHC (32-36) g/dL RDW (11.5-14.0) % Plt Count (150-450) x10^3/uL MPV (7.5-11.0) fL Sodium 135 L (137-145) mmol/L Potassium 3.8 (3.5-5.1) mmol/L Chloride 100 (98-107) mmol/L Carbon Dioxide 29 (22-30) mmol/L Anion Gap 9.9 (5-15) MEQ/L BUN 16 (9-20) mg/dL Creatinine 0.75 (0.66-1.25) mg/dL Estimated GFR > 60.0 ML/MIN Glucose 174 H (74-106) mg/dL POC Glucometer 163 H (74 to 106) mg/dL Calcium 9.0 (8.4-10.2) mg/dL Total Bilirubin 0.40 (0.2-1.3) mg/dL AST 24 (17-59) U/L ALT 20 (0-50) U/L Alkaline Phosphatase 100 (38-126) U/L Serum Total Protein 7.3 (6.3-8.2) g/dL Albumin 4.1 (3.5-5.0) g/dL Procalcitonin 0.065 (0.030-0.080) ng/mL 12/08/21 Range/Units 11:45 WBC (4.0-10.5) x10^3/uL RBC (4.1-5.6) x10^6/uL Hgb (12.5-18.0) g/dL Hct (42-50) % MCV (78-100) fL MCH (26-32) pg MCHC (32-36) g/dL RDW (11.5-14.0) % Plt Count (150-450) x10^3/uL MPV (7.5-11.0) fL Sodium (137-145) mmol/L Potassium (3.5-5.1) mmol/L Chloride (98-107) mmol/L Carbon Dioxide (22-30) mmol/L Anion Gap (5-15) MEQ/L BUN (9-20) mg/dL Creatinine (0.66-1.25) mg/dL Estimated GFR ML/MIN Glucose (74-106) mg/dL POC Glucometer 122 H (74 to 106) mg/dL Calcium (8.4-10.2) mg/dL Total Bilirubin (0.2-1.3) mg/dL AST (17-59) U/L ALT (0-50) U/L Alkaline Phosphatase (38-126) U/L Serum Total Protein (6.3-8.2) g/dL Albumin (3.5-5.0) g/dL Procalcitonin (0.030-0.080) ng/mL Micro Results-Entire Visit: Accuchecks Date 12/08/21 Date 12/08/21 Time 11:47 Time 08:13 - Radiology Exams Ordered Rad Exams-Entire Visit: Radiology Procedures Category Date Time Status CHEST 1 VIEW (PORTABLE) Stat Exams 12/07/21 03:59 Completed CHEST WITH CONTRAST [CT] Stat Exams 12/07/21 05:12 Completed - Procedures and Test Procedures and Tests throughout Hospitalization: Therapy Orders & Screens 12/07/21 04:03 Respiratory Therapy Assessment DAILY Comment: 12/07/21 08:15 Oxygen Nasal Cannula 3 lpm Comment: Respiratory Therapy Consult ROUTINE Comment: Reason For Exam: 12/07/21 08:56 RT Screen per Nursing Assess ONCE Comment: Protocol Order Physician Instructions: Greater than 3 points order RT Admission Screen Reason For Exam: Triggered on Admission Diagnosis: COPD EXACERBATION, RUL NODULE Diagnosis: COPD EXACERBATION, RUL NODULE Pneumonia: No Home O2: Yes Asthma: No CHF: No Home CPAP/BIPAP: No Home Nebs/MDI: Yes Total Points: 10 12/07/21 14:54 Respiratory MDI UD Comment: trelegy- pt's own med Diagnosis: COPD EXACERBATION, RUL NODULE - Discharge Discharge Date: 12/08/21 Disposition: Home, Self-Care Condition: Stable Prescriptions: New Levofloxacin [Levofloxacin 500 MG Tablet] 500 mg PO DAILY 7 Days #7 tablet Hydroxyzine HCl 25 mg [Atarax 25 mg] 25 mg PO QID PRN #60 tablet PRN Reason: Anxiety Methylprednisolone Packet [Medrol Dosepack] 1 pkt PO UD #1 packet Continue Latanoprost [Xalatan] 2.5 ml OP HS Albuterol/Ipratropium 3ml Neb* [DUONEB 0.5-3 MG/3 ml Neb] 3 ml IH Q6H PRN PRN PRN Reason: Shortness Of Breath/Wheezing Fluticasone/Umeclidin/Vilanter [Trelegy Ellipta 200-62.5-25] 1 each IH DAILY Vit C/E/Zn/Coppr/Lutein/Zeaxan [Preservision Areds 2 Softgel] 1 each PO BID Montelukast Sodium 10 mg [Singulair 10 MG] 10 mg PO DAILY Lisinopril/Hydrochlorothiazide [Lisinopril-Hctz 20-12.5 mg Tab] 1 each PO BID Albuterol 8 gm Mdi Hfa [Ventolin Hfa MDI] 8 gm IH Q4H PRN PRN PRN Reason: Shortness Of Breath/Wheezing Tamsulosin HCl 0.4 mg [Flomax 0.4 MG] 0.4 mg PO DAILY Instructions: Exacerbation of COPD (DC) Additional Instructions: PATIENT WILL FOLLOW UP WITH DR EMILY SUTTON (PATROL INSPECTOR) IN [place] ON 01-15-22 AT 2PM. Follow up with: RAQUEL VILLRAREAL [ACTIVE STAFF] - 12/17/21 3:45 pm ANN FLORES MD [ACTIVE STAFF] - 12/15/21 2:45 pm (WILL BE SEEN AT THE [place] OFFICE) SHE SAMS NP [Primary Care Provider] - 12/17/21 10:15 am Forms: Discharge Instructions
== END 2021-12-08 14:17 | disposition home or self-care (01) ==
LOC: ED 03:47 → MED SURG 07:45
PROVIDERS: ADMIT General Practice; ATTEND General Practice
DX: J44.1 Chronic obstructive pulmonary disease with (acute) exacerbation (principal); I10 Essential (primary) hypertension; F41.8 Other specified anxiety disorders; Z72.0 Tobacco use; Z20.828 Contact with and (suspected) exposure to other viral communicable diseases; Z79.899 Other long term (current) drug therapy; Z99.81 Dependence on supplemental oxygen
CPT/HCPCS: 0241U; 36000; 36415; 71045; 71260; 80053; 82947; 83880; 84145; 84484; 85025; 85027; 85379; 85610; 93005; 94640; 94760; 96374; 99285; 93268; J1650; J1815; J2060; J2543; J2930; J7609; A9270-GY; G0378

== ENCOUNTER 2024-05-01 17:00 | Emergency (ER) | payer MEDICARE, OTHER ==
[2024-05-01] MEDS ORDERED: Sterile H2O 10 ml IJ ONE (17:20)
[2024-05-01] MEDS ORDERED: solu-MEDROL ONE (17:20)
[2024-05-01] MEDS ORDERED: Cardizem IV 50 MG/10 ML IV ONE (17:20)
[2024-05-01] MEDS: Cardizem IV 50 MG/10 ML IV ONE (17:22)
[2024-05-01] MEDS ORDERED: DUONEB 0.5-3 MG/3 ml Neb IH ONE (17:24)
[2024-05-01] MEDS: solu-MEDROL 125 MG, Sterile H2O 10 ml 2 ML IV ONE (17:32)
[2024-05-01 17:33] LABS: Absolute Neutrophil Ct (ANC) 20.88 x10^3/uL (1.78-5.38); BASOPHIL % 0.1 % (0.2-1.2); Basophil (Absolute #) 0.03 x10^3/uL (0.01-0.08); Eosinophil (Absolute #) 0 x10^3/uL (0.04-0.54); Hematocrit 37.4 % (40.1-51.0); Hemoglobin 13.2 g/dL (13.7-17.5); IMMATURE GRAN # 0.44 x10^3u/L (0.001-0.031); IMMATURE GRAN % 1.9 % (0.001-0.429); Lymphocyte (Absolute #) 0.53 x10^3/uL (1.32-3.57); Lymphocytes % 2.3 % (21.8-53.1); Mean Cell Volume 89.7 fL (79.0-92.2); Mean Corpuscular Hemoglobin 31.7 pg (25.7-32.2); Mean Corpuscular Hgb Concent. 35.3 g/dL (32.3-36.5); Mean Platelet Volume 9.4 fL (9.4-12.4); Monocyte (Absolute #) 0.71 x10^3/uL (0.30-0.82); Monocytes % 3.1 % (5.3-12.2); Neutrophil % 92.6 % (34.0-67.9); Platelet Count 169 x10^3/uL (163-337); Red Blood Count 4.17 x10^6/uL (4.63-6.08); Red Cell Distribution Width 12.9 % (11.6-14.4); White Blood Count 22.6 x10^3/uL (4.23-9.07)
[2024-05-01] MEDS ORDERED: CARDIZEM DRIP 100 MG/100 ML D5W 100 ML IV ONE (17:36)
[2024-05-01] MEDS: CARDIZEM DRIP 100 MG/100 ML D5W 100 ML IV PRN (17:37)
[2024-05-01] MEDS: DUONEB 0.5-3 MG/3 ml Neb IH ONE (17:37)
[2024-05-01 17:46] LABS: ALBUMIN 3.3 g/dL (3.5-5.0); BILIRUBIN,TOTAL 1.2 mg/dL (0.2-1.3); Calcium 8.2 mg/dL (8.4-10.2); Creatinine 1 0.86 mg/dL (0.66-1.25); EST GLOMERULAR FILTRATION RATE 90.3 ML/MIN; Potassium 4.3 mmol/L (3.5-5.1); Total Protein 5.8 g/dL (6.3-8.2)
--- NOTE | 2024-05-01 17:58 | ERPHSYRPT ---
- History of Present Illness Time Seen by Provider: 05/01/24 17:10 Source: patient Exam Limitations: no limitations Patient Subjective Stated Complaint: C/O SOB for 3-4 days Triage Nursing Assessment: Patient arrived by ambulance with a duoneb mask on. He is alert and oriented. He is SOB; RT called. Patient wears 02 @ 3L per N/C continuously at home. Edema present to BLE. Oral mucosa is dry. Scattered bruising present to BUE and BLE; patient states he fell. Skin tear from fall also noted to right elbow. Diaphoretic. Physician History: 73-year-old male history of COPD normally wears 3 L nasal cannula oxygen presents to our ED for evaluation of shortness of breath that has got progressively worse over 3 to 4 days. Patient now requires 6 L oxygen nasal cannula to feel well. Patient has a dry nonproductive cough. EKG reveals A-fib with RVR. Patient adds that he fell at home. Patient has a superficial skin te ar of the right elbow. Patient denies bony tenderness. Patient voices no other complaints or concerns at this time. Portions of this note were created with voice recognition technology. There may be grammatical, spelling, punctuation or sound alike errors Timing/Duration: today Activities at Onset: none Severity of Dyspnea-Max: moderate Severity of Dyspnea-Current: mild Possible Cause: occasional episodes Modifying Factors: Improves With: activity Allergies/Adverse Reactions: No Known Drug Allergies Allergy (Verified 05/01/24 17:04) Home Medications: Albuterol 8 gm Mdi Hfa [Ventolin Hfa MDI] 8 gm IH Q4H PRN PRN 12/07/21 [History] Albuterol/Ipratropium 3ml Neb* [DUONEB 0.5-3 MG/3 ml Neb] 3 ml IH Q6H PRN PRN 12/07/21 [History] Lisinopril/Hydrochlorothiazide [Lisinopril-Hctz 20-12.5 mg Tab] 1 each PO BID 12/07/21 [History] Montelukast Sodium 10 mg [Singulair 10 MG] 10 mg PO DAILY 12/07/21 [History] Tamsulosin HCl 0.4 mg [Flomax 0.4 MG] 0.4 mg PO DAILY 12/07/21 [History] Fluticasone/Umeclidin/Vilanter [Trelegy Ellipta 200-62.5-25] 1 inhaler PO DAILY 05/01/24 [History] Prednisone 10 mg [Deltasone 10 mg] 10 mg PO DAILY 05/01/24 [History] Hx Tetanus, Diphtheria Vaccination/Date Given: No Hx Influenza Vaccination/Date Given: Yes Hx Pneumococcal Vaccination/Date Given: No Immunizations Up to Date: Yes Travel Risk - International Travel Have you traveled outside of the country in past 3 weeks: No - Emerging Infectious Disease Are you exhibiting symptoms associated with any current EIDs: Yes Symptoms: Cough: New Onset, Fever, Shortness of Breath - Review of Systems Constitutional: No Symptoms, No Fever, No Chills Eyes: No Symptoms Ears, Nose, & Throat: No Symptoms Respiratory: No Symptoms, No Cough, No Dyspnea Cardiac: No Symptoms, No Chest Pain, No Edema, No Syncope Abdominal/Gastrointestinal: No Symptoms, No Abdominal Pain, No Nausea, No Vom iting, No Diarrhea Genitourinary Symptoms: No Symptoms, No Dysuria Musculoskeletal: No Symptoms, No Back Pain, No Neck Pain Skin: No Symptoms, No Rash Neurological: No Symptoms, No Dizziness, No Focal Weakness, No Sensory Changes Psychological: No Symptoms Endocrine: No Symptoms Hematologic/Lymphatic: No Symptoms Immunological/Allergic: No Symptoms All Other Systems: Reviewed and Negative - Past Medical History Pertinent Past Medical History: Yes Neurological History: No Pertinent History ENT History: Cataracts, Macular Degeneration Cardiac History: No Pertinent History, Hypertension Respiratory History: COPD, Emphysema Endocrine Medical History: No Pertinent History Musculoskeletal History: No Pertinent History GI Medical History: No Pertinent History, GERD History: No Pertinent History Psycho-Social History: No Pertinent History Male Reproductive Disorders: Prostate Problems - Past Surgical History Past Surgical History: Yes Neuro Surgical History: No Pertinent History Cardiac: No Pertinent History Respiratory: No Pertinent History Gastrointestinal: No Pertinent History Genitourinary: No Pertinent History Musculoskeletal: No Pertinent History Male Surgical History: No Pertinent History Other Surgical History: colonoscopy - Social History Smoking Status: Current every day smoker How long have you smoked: 50+ Exposure to second hand smoke: Yes Drug Use: none - Social Determinants of Health Will the patient participate in the screening: Declined to provide - Nursing Vital Signs Nursing Vital Signs: Initial Vital Signs Temperature 101.3 F 05/01/24 17:01 Pulse Rate 170 H 05/01/24 17:01 Respiratory Rate 36 H 05/01/24 17:01 O2 Sat by Pulse Oximetry 94 L 05/01/24 17:01 Pain Scale Pain Intensity 0 - Physical Exam General Appearance: no apparent distress, alert Eye Exam: PERRL/EOMI, eyes nml inspection Ears, Nose, Throat Exam: hearing grossly normal, normal ENT inspection Neck Exam: normal inspection, non-tender, supple, full range of motion Respiratory Exam: chest tenderness, respiratory distress, diminished breath sounds, rhonchi, other (Tachypnea) Cardiovascular/Chest Exam: normal heart sounds, tachycardia, other (A-fib with RVR) Abdominal/Gastrointestinal Exam: soft, normal bowel sounds, No tenderness, No distention, No mass Extremity Exam: non-tender, normal range of motion, normal inspection, no calf tenderness, no pedal edema, swelling (2+ pitting edema) Neurologic Exam: alert, oriented x 3, cooperative, 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, sensation nml, No motor deficits Skin Exam: normal color, warm, No dry Lymphatic Exam: No adenopathy SpO2 Interpretation: normal SpO2: 90 O2 Delivery: Room Air - Course Nursing assessment & vital signs reviewed: Yes EKG Interpreted by Me: RATE (60), A-fib, NORMAL AXIS, NORMAL INTERVALS, NORMAL QRS - CT Exams Chest CT Interpretation: Tele-radiologist Report (CT a chest negative for PE however right upper and lower lobe pneumonia as well as left lower lobe pneumonia observed.) Ordered Tests: Active Orders 24 hr Category Date Time Status [employer] STAT Care 05/01/24 17:07 Active EKG-ER Only STAT Care 05/01/24 17:06 Active IV Insertion STAT Care 05/01/24 17:06 Active Oxygen-ED Only Nasal Cannula 5 lpm Care 05/01/24 17:44 Active Pulse Oximetry (ED) STAT Care 05/01/24 17:06 Active CHEST WITH CONTRAST [CT] Stat Exams 05/01/24 18:07 Taken BLOOD CULTURE Stat Lab 05/01/24 17:25 Received CBC W DIFF Stat Lab 05/01/24 17:35 Completed CMP Stat Lab 05/01/24 17:35 Completed CULTURE,URINE Stat Lab 05/01/24 18:48 Received D-DIMER QUANTITATIVE Stat Lab 05/01/24 17:35 Completed NT PRO BNPII Stat Lab 05/01/24 17:35 Completed TROPONIN Q4H Lab 05/01/24 17:35 Completed TROPONIN Q4H Lab 05/01/24 21:15 Completed TROPONIN Q4H Lab 05/02/24 01:15 Ordered UA W/RFX UR CULTURE Stat Lab 05/01/24 18:48 Completed Medication Summary Generic Name Dose Route Start Last Admin Trade Name Freq PRN Reason Stop Dose Admin Diltiazem HCl 100 mls @ 5 mls/hr 05/01/24 17:33 05/01/24 19:40 Cardizem Drip 100 Mg/100 Ml D5w IV 05/31/24 17:32 5 mg/hr .Q20H PRN 5 mls/hr HEART RATE/ A-FIB Titration Protocol 5 MG/HR Sodium Chloride 1,000 mls @ 100 mls/hr 05/01/24 23:00 05/01/24 23:00 Sodium Chloride 0.9% 1000 Ml IV 05/31/24 22:59 100 mls/hr .Q10H NICA Administration Discontinued Medications Generic Name Dose Route Start Last Admin Trade Name Freq PRN Reason Stop Dose Admin Albuterol/Ipratropium 3 ml 05/01/24 17:06 05/01/24 17:37 Ipratropium/Albuterol Sulfate 3 Ml Ampul.Neb IH 05/01/24 17:07 3 ml STAT ONE Administration Albuterol/Ipratropium Confirm 05/01/24 17:24 Ipratropium/Albuterol Sulfate 3 Ml Ampul.Neb Administered 05/01/24 17:25 Dose 3 ml IH .STK-MED ONE Methylprednisolone Sodium 0 mg 05/01/24 17:06 05/01/24 17:32 Succinate 125 mg/ Sterile IV 05/01/24 17:07 125 mg Water 2 ml STAT ONE Administration Diltiazem HCl 10 mg 05/01/24 17:17 05/01/24 17:22 Diltiazem Hcl Iv 5 Mg/Ml Vial IV 05/01/24 17:18 10 mg STAT ONE Administration Diltiazem HCl Confirm 05/01/24 17:20 Diltiazem Hcl Iv 5 Mg/Ml Vial Administered 05/01/24 17:21 Dose 50 mg IV .STK-MED ONE Enoxaparin Sodium 80 mg 05/01/24 21:37 05/01/24 21:42 Enoxaparin Sodium 80 Mg/0.8 Ml Syringe SQ 05/01/24 21:38 80 mg STAT ONE Administration Enoxaparin Sodium Confirm 05/01/24 21:41 Enoxaparin Sodium 80 Mg/0.8 Ml Syringe Administered 05/01/24 21:42 Dose 80 mg SQ .STK-MED ONE Ceftriaxone Sodium 2 gm in 100 mls @ 200 mls/hr 05/01/24 21:35 05/01/24 22:12 Rocephin 2 Gm/100 Ml Nacl IV 05/01/24 22:04 Infused STAT ONE Infusion Azithromycin 500 mg in 250 mls @ 250 mls/hr 05/01/24 21:35 05/01/24 22:24 Zithromax 500 Mg/ 250 Ml Nacl Premix IV 05/01/24 22:34 250 mls/hr STAT STA 250 mls/hr Administration Ceftriaxone Sodium Confirm 05/01/24 21:41 Rocephin 2 Gm/100 Ml Nacl Administered 05/01/24 21:42 Dose 2 gm in 100 mls @ ud IV .STK-MED ONE Azithromycin Confirm 05/01/24 22:23 Zithromax 500 Mg/ 250 Ml Nacl Premix Administered 05/01/24 22:24 Dose 500 mg in 250 mls @ ud IV .STK-MED ONE Methylprednisolone Sodium Succinate Confirm 05/01/24 17:20 Methylprednis Sod Succ 125 Mg/2 Ml Vial Administered 05/01/24 17:21 Dose 125 mg .ROUTE .STK-MED ONE Oseltamivir Phosphate 75 mg 05/01/24 21:37 05/01/24 21:42 Oseltamivir 75 Mg Cap PO 05/01/24 21:38 75 mg STAT ONE Administration Oseltamivir Phosphate Confirm 05/01/24 21:41 Oseltamivir 75 Mg Cap Administered 05/01/24 21:42 Dose 75 mg PO .STK-MED ONE Sterile Water Confirm 05/01/24 17:20 Water For Injection,Sterile 10 Ml Vial Administered 05/01/24 17:21 Dose 10 ml IJ .STK-MED ONE Lab/Rad Data: Laboratory Result Diagrams 05/01/24 17:35 05/01/24 17:35 Laboratory Results 05/01/24 05/01/24 05/01/24 Range/Units 21:15 18:48 17:35 WBC (4.23-9.07) x10^3/uL RBC (4.63-6.08) x10^6/uL Hgb (13.7-17.5) g/dL Hct (40.1-51.0) % MCV (79.0-92.2) fL MCH (25.7-32.2) pg MCHC (32.3-36.5) g/dL RDW (11.6-14.4) % Plt Count (163-337) x10^3/uL MPV (9.4-12.4) fL Gran % (34.0-67.9) % Immature Gran % (Auto) (0.001-0.429) % Nucleat RBC Rel Count (0.00-0.2) % Eos # (Auto) (0.04-0.54) x10^3/uL Immature Gran # (Auto) (0.001-0.031) x10^3u/L Absolute Lymphs (auto) (1.32-3.57) x10^3/uL Absolute Monos (auto) (0.30-0.82) x10^3/uL Absolute Nucleated RBC (0.00-0.012) x10^3u/L Lymphocytes % (21.8-53.1) % Monocytes % (5.3-12.2) % Eosinophils % (0.8-7.0) % Basophils % (0.2-1.2) % Absolute Granulocytes (1.78-5.38) x10^3/uL Basophils # (0.01-0.08) x10^3/uL D-Dimer (0.0-0.50) mg/L Sodium (135-145) mmol/L Potassium (3.5-5.1) mmol/L Chloride (98-107) mmol/L Carbon Dioxide (22-30) mmol/L Anion Gap (5-15) MEQ/L BUN (9-20) mg/dL Creatinine (0.66-1.25) mg/dL Estimated GFR ML/MIN Glucose (74-106) mg/dL Calcium (8.4-10.2) mg/dL Total Bilirubin (0.2-1.3) mg/dL AST (17-59) U/L ALT (0-50) U/L Alkaline Phosphatase (38-126) U/L Troponin I 0.200 H* 0.095 H* (0.000-0.033) ng/mL NT-Pro-B Natriuret Pep 2390 (<300) pg/mL Serum Total Protein (6.3-8.2) g/dL Albumin (3.5-5.0) g/dL Urine Color Yellow (Yellow) Urine Appearance Clear (Clear) Urine pH 6.5 (4.6-8.0) Ur Specific [place] 1.020 (1.005-1.030) Urine Protein 100 A (Negative) Urine Glucose (UA) Negative (Negative) mg/dL Urine Ketones 15 A (Negative) Urine Blood Large A (Negative) Urine Nitrite Negative (Negative) Urine Bilirubin Negative (Negative) Urine Urobilinogen 0.2 (0.2) mg/dL Ur Leukocyte Esterase Small A (Negative) U Hyaline Cast (Auto) 3-5 A (0-2) /LPF Urine Microscopic RBC >100 A (0-5) /HPF Urine Microscopic WBC 3-5 (0-5) /HPF Ur Epithelial Cells None Seen (None Seen) /HPF Urine Bacteria None Seen (None Seen) /HPF Urine Culture Reflexed YES (NO) Influenza Type A Ag (NEGATIVE) Influenza Type B Ag (NEGATIVE) RSV (PCR) (NEGATIVE) SARS-CoV-2 (PCR) (NEGATIVE) Slides for Path Review 05/01/24 05/01/24 05/01/24 Range/Units 17:35 17:35 17:35 WBC 22.6 H (4.23-9.07) x10^3/uL RBC 4.17 L (4.63-6.08) x10^6/uL Hgb 13.2 L (13.7-17.5) g/dL Hct 37.4 L (40.1-51.0) % MCV 89.7 (79.0-92.2) fL MCH 31.7 (25.7-32.2) pg MCHC 35.3 (32.3-36.5) g/dL RDW 12.9 (11.6-14.4) % Plt Count 169 (163-337) x10^3/uL MPV 9.4 (9.4-12.4) fL Gran % 92.6 H (34.0-67.9) % Immature Gran % (Auto) 1.9 H (0.001-0.429) % Nucleat RBC Rel Count 0.0 (0.00-0.2) % Eos # (Auto) 0 L (0.04-0.54) x10^3/uL Immature Gran # (Auto) 0.44 H (0.001-0.031) x10^3u/L Absolute Lymphs (auto) 0.53 L (1.32-3.57) x10^3/uL Absolute Monos (auto) 0.71 (0.30-0.82) x10^3/uL Absolute Nucleated RBC 0.00 (0.00-0.012) x10^3u/L Lymphocytes % 2.3 L (21.8-53.1) % Monocytes % 3.1 L (5.3-12.2) % Eosinophils % 0.0 L (0.8-7.0) % Basophils % 0.1 L (0.2-1.2) % Absolute Granulocytes 20.88 H (1.78-5.38) x10^3/uL Basophils # 0.03 (0.01-0.08) x10^3/uL D-Dimer 16.95 H* (0.0-0.50) mg/L Sodium 123 L (135-145) mmol/L Potassium 4.3 (3.5-5.1) mmol/L Chloride 89 L (98-107) mmol/L Carbon Dioxide 22 (22-30) mmol/L Anion Gap 16.0 H (5-15) MEQ/L BUN 28 H (9-20) mg/dL Creatinine 0.86 (0.66-1.25) mg/dL Estimated GFR 90.3 ML/MIN Glucose 129 H (74-106) mg/dL Calcium 8.2 L (8.4-10.2) mg/dL Total Bilirubin 1.20 (0.2-1.3) mg/dL AST 34 (17-59) U/L ALT 22 (0-50) U/L Alkaline Phosphatase 80 (38-126) U/L Troponin I (0.000-0.033) ng/mL NT-Pro-B Natriuret Pep (<300) pg/mL Serum Total Protein 5.8 L (6.3-8.2) g/dL Albumin 3.3 L (3.5-5.0) g/dL Urine Color (Yellow) Urine Appearance (Clear) Urine pH (4.6-8.0) Ur Specific [place] (1.005-1.030) Urine Protein (Negative) Urine Glucose (UA) (Negative) mg/dL Urine Ketones (Negative) Urine Blood (Negative) Urine Nitrite (Negative) Urine Bilirubin (Negative) Urine Urobilinogen (0.2) mg/dL Ur Leukocyte Esterase (Negative) U Hyaline Cast (Auto) (0-2) /LPF Urine Microscopic RBC (0-5) /HPF Urine Microscopic WBC (0-5) /HPF Ur Epithelial Cells (None Seen) /HPF Urine Bacteria (None Seen) /HPF Urine Culture Reflexed (NO) Influenza Type A Ag (NEGATIVE) Influenza Type B Ag (NEGATIVE) RSV (PCR) (NEGATIVE) SARS-CoV-2 (PCR) (NEGATIVE) Slides for Path Review YES 05/01/24 Range/Units 17:25 WBC (4.23-9.07) x10^3/uL RBC (4.63-6.08) x10^6/uL Hgb (13.7-17.5) g/dL Hct (40.1-51.0) % MCV (79.0-92.2) fL MCH (25.7-32.2) pg MCHC (32.3-36.5) g/dL RDW (11.6-14.4) % Plt Count (163-337) x10^3/uL MPV (9.4-12.4) fL Gran % (34.0-67.9) % Immature Gran % (Auto) (0.001-0.429) % Nucleat RBC Rel Count (0.00-0.2) % Eos # (Auto) (0.04-0.54) x10^3/uL Immature Gran # (Auto) (0.001-0.031) x10^3u/L Absolute Lymphs (auto) (1.32-3.57) x10^3/uL Absolute Monos (auto) (0.30-0.82) x10^3/uL Absolute Nucleated RBC (0.00-0.012) x10^3u/L Lymphocytes % (21.8-53.1) % Monocytes % (5.3-12.2) % Eosinophils % (0.8-7.0) % Basophils % (0.2-1.2) % Absolute Granulocytes (1.78-5.38) x10^3/uL Basophils # (0.01-0.08) x10^3/uL D-Dimer (0.0-0.50) mg/L Sodium (135-145) mmol/L Potassium (3.5-5.1) mmol/L Chloride (98-107) mmol/L Carbon Dioxide (22-30) mmol/L Anion Gap (5-15) MEQ/L BUN (9-20) mg/dL Creatinine (0.66-1.25) mg/dL Estimated GFR ML/MIN Glucose (74-106) mg/dL Calcium (8.4-10.2) mg/dL Total Bilirubin (0.2-1.3) mg/dL AST (17-59) U/L ALT (0-50) U/L Alkaline Phosphatase (38-126) U/L Troponin I (0.000-0.033) ng/mL NT-Pro-B Natriuret Pep (<300) pg/mL Serum Total Protein (6.3-8.2) g/dL Albumin (3.5-5.0) g/dL Urine Color (Yellow) Urine Appearance (Clear) Urine pH (4.6-8.0) Ur Specific [place] (1.005-1.030) Urine Protein (Negative) Urine Glucose (UA) (Negative) mg/dL Urine Ketones (Negative) Urine Blood (Negative) Urine Nitrite (Negative) Urine Bilirubin (Negative) Urine Urobilinogen (0.2) mg/dL Ur Leukocyte Esterase (Negative) U Hyaline Cast (Auto) (0-2) /LPF Urine Microscopic RBC (0-5) /HPF Urine Microscopic WBC (0-5) /HPF Ur Epithelial Cells (None Seen) /HPF Urine Bacteria (None Seen) /HPF Urine Culture Reflexed (NO) Influenza Type A Ag POSITIVE A (NEGATIVE) Influenza Type B Ag NEGATIVE (NEGATIVE) RSV (PCR) NEGATIVE (NEGATIVE) SARS-CoV-2 (PCR) NEGATIVE (NEGATIVE) Slides for Path Review - Progress Progress: improved Air Movement: good Progress Note: I spoke to ER physician at [facility] who accepts transfer at 10:07 PM. Plan of care discussed with patient. He agrees to transfer to [facility] for further evaluation and treatment. Portions of this note were created with voice recognition technology. There may be grammatical, spelling, punctuation or sound alike errors 05/01/24 22:08 Patient is a 73-year-old male history of COPD presents to our ED via EMS for evaluation of shortness of breath. Patient normally requires 3 L oxygen nasal cannula at home. Patient reports that shortness of breath has gotten progressively worse causing him to increase the supplemental oxygen from 3 L to 6 L. On exam patient had coarse and diminished breath sounds. Blood cultures obtained. EKG revealed A-fib with RVR with a rate of 170. Patient received a Cardizem drip. Lovenox administered. Troponin ordered and resulted as positive. Troponin trending upward however patient had no chest pain. Elevated troponin likely secondary to demand ischemia from A-fib with RVR. D-dimer positive at 16. CTA chest negative for PE however the CT showed a right upper and lower lobe airspace disease as well as left lower lobe airspace disease. Blood cultures obtained. CBC revealed a leukocytosis of 26.2. Patient received 2 g Rocephin and 500 mg of azithromycin. Viral panel revealed positive for influenza A. Patient received a dose of Tamiflu. Hyponatremia at 123 observed on chemistry. IV fluids administered. Patient reassessed. Patient improved cl inically. Shortness of breath significantly better after heart rate decreased from 170-103. In light of patient's elevated troponin and the fact that we do not in ICU bed to accommodate our patient on a Cardizem drip was made to transfer to [facility]. Plan of care discussed with patient and his . They agree to transfer to [facility] for further evaluation and treatment. Patient stabilized. Temperature upon arrival was 101.3. Fever defervesced to 99.1 Portions of this note were created with voice recognition technology. There may be grammatical, spelling, punctuation or sound alike errors Complexity of problem addressed is moderate acute complicated. Critical care time is greater than 194 minutes. Immediate intervention required to prevent further deterioration. Complexity of problem addressed is extensive. Test ordered chest reviewed results analyzed and correlated clinically with history and physical exam. Management discussed with ER physician at [facility] who accepts transfer. I spoke to at 10:07 PM. Risk of complication and or risk of morbidity/mortality of patient management is high. Patient requires transfer to higher level of care. Vitals are now stable. Plan of care established for shared decision making. No social determinants of health present to impede follow-up. Portions of this note were created with voice recognition technology. There may be grammatical, spelling, punctuation or sound alike errors 05/01/24 22:42 05/01/24 22:57 Blood Culture(s) Obtained: Yes Antibiotics given: Yes Counseled pt/family regarding: lab results, diagnosis, rad results - Departure Departure Disposition: Transfer Clinical Impression: COPD exacerbation, Atrial fibrillation with RVR, COPD (chronic obstructive pulmonary disease), Hypoxia, Influenza A, Elevated troponin, Leukocytosis, Hyponatremia, Fever, Bilateral pneumonia Condition: Stable Critical Care Time: Yes Critical Care Time(excluding separately billable procedures): Critical > 194 mins Referrals: SHE SAMS NP [Primary Care Provider] - Follow up/PCP as directed Instructions: Chronic Obstructive Pulmonary Disease
[2024-05-01 18:15] LABS: INFLUENZA B NEGATIVE (NEGATIVE); RESPIRATORY SYNCTIAL VIRUS NEGATIVE (NEGATIVE); SARS-CoV-2 Xpert Express NEGATIVE (NEGATIVE)
[2024-05-01 18:24] LABS: TROPONIN 0.095 ng/mL (0.000-0.033)
[2024-05-01 18:39] LABS: INFLUENZA A POSITIVE (NEGATIVE)
[2024-05-01 19:10] LABS: Appearance Clear (Clear); Bacteria None Seen /HPF (None Seen); Bilirubin Negative (Negative); Blood Large (Negative); Epithelial Cells None Seen /HPF (None Seen); Glucose, Urine Negative (Negative); Ketones 15 (Negative); Leukocyte Esterase Small (Negative); Nitrite Negative (Negative); Ph 6.5 (4.6-8.0); Protein,Urine Dip 100 (Negative); RBC >100 /HPF (0-5); Urobilinogen 0.2 mg/dL (0.2)
[2024-05-01 20:45] LABS: Slide Review 1 YES
[2024-05-01] MEDS ORDERED: ROCEPHIN 2 GM/100 ML NACL 2 GM/100 ML IVPB IV ONE (21:41)
[2024-05-01] MEDS ORDERED: Tamiflu 75MG Capsule PO ONE (21:41)
[2024-05-01] MEDS ORDERED: ENOXAPARIN SODIUM SQ ONE (21:41)
[2024-05-01] MEDS: ENOXAPARIN SODIUM SQ ONE (21:42)
[2024-05-01] MEDS: Tamiflu 75MG Capsule PO ONE (21:42)
[2024-05-01] MEDS: ROCEPHIN 2 GM/100 ML NACL 2 GM/100 ML IVPB IV ONE (21:42)
[2024-05-01] MEDS ORDERED: Zithromax 500 MG/ 250 ML NaCl Premix 500 MG/250 ML IVPB IV ONE (22:23)
[2024-05-01] MEDS: Zithromax 500 MG/ 250 ML NaCl Premix 500 MG/250 ML IVPB IV STA (22:24)
[2024-05-01 22:55] VITALS: TEMP 99.1
[2024-05-01] MEDS ORDERED: Sodium Chloride 0.9% 1000 ML 1,000 ML ONE (22:58)
[2024-05-01] MEDS: Sodium Chloride 0.9% 1000 ML 1,000 ML IV SCH (23:00)
[2024-05-01 23:03] VITALS: BP 109/68; PULSE 103; RESP 20
[2024-05-01 23:36] VITALS: O2SAT 90
--- NOTE | 2024-05-02 08:46 | XRAY ---
Indication: Short of breath. Elevated d-dimer. Multiple contiguous axial images obtained through the chest using 80 cc Isovue 370 contrast and PE protocol. Comparison: CT chest without contrast February 18, 2022. Good opacification pulmonary arteries. However diffuse respiration artifact limits evaluation of the more distal lobar and segmental branches. No obvious pulmonary embolus. Heart not enlarged. Aorta remains mildly arteriosclerotic without aneurysm/dissection. Stable tiny mediastinal calcified nodes. No pathologically distalis/hilar lymphadenopathy. Lungs demonstrates new diffuse right lower lobe and lesser degree left lower lobe/right upper lobe consolidating/nonconsolidating airspace disease with small effusions. Grossly stable mild diffuse pulmonary emphysema and 1 cm indeterminate right upper lobe noncalcified nodule. Bony thorax intact again with osteopenia and mild/moderate degenerative changes throughout spine. Limited upper abdomen unremarkable. Impression: 1. Respiration artifact limits pulmonary embolus evaluation. No obvious pulmonary embolus. 2. New right lower, right upper, and left lower lobe consolidating/nonconsolidating airspace disease with small effusions. 3. Stable 1 cm indeterminate right upper lobe noncalcified nodule. Again recommend follow-up per Fleischner guidelines. 4. Chronic findings including pulmonary emphysema, arteriosclerotic disease, chronic bony findings, and old granulomatous disease.
== END 2024-05-01 23:35 | disposition short-term general hospital (02) ==
LOC: ED 17:00
DX: J44.1 Chronic obstructive pulmonary disease with (acute) exacerbation (principal); I48.20 Chronic atrial fibrillation, unspecified; J10.00 Influenza due to other identified influenza virus with unspecified type of pneumonia; R09.02 Hypoxemia; R77.8 Other specified abnormalities of plasma proteins; D72.829 Elevated white blood cell count, unspecified; E87.1 Hypo-osmolality and hyponatremia; R50.9 Fever, unspecified; I10 Essential (primary) hypertension; Z79.52 Long term (current) use of systemic steroids; Z79.899 Other long term (current) drug therapy; Z72.0 Tobacco use; Z99.81 Dependence on supplemental oxygen
CPT/HCPCS: 0241U; 36415; 71260; 80053; 81001; 83880; 84484; 85025; 85379; 87040; 87086; 93005; 93041; 94640; 94760; 96365; 96366; 96375; 99291; 99292; 96374; 99285; J0456; J0696; J1650; J2919; A9270-GY

== ENCOUNTER 2024-05-30 00:55 | Emergency (ER) | payer MEDICARE, OTHER ==
--- NOTE | 2024-05-30 01:15 | ERPHSYRPT ---
- History of Present Illness Time Seen by Provider: 05/30/24 01:12 Source: patient Exam Limitations: no limitations Physician History: Patient is a 73-year-old male history of COPD emphysema current smoker history of A-fib with RVR presents to our ED via EMS from home for evaluation of a fall. Patient wears 3 L nasal cannula at home daily. Patient states that he was at home lost his balance and fell. Patient sustained numerous skin tear. And a left eyebrow laceration. Patient reports that he has a history of A-fib with RVR. Patient is currently on a blood thinner. No chest pain. Mild shortness of breath. No nausea vomiting or diaphoresis. Patient otherwise feels well. He voices no other complaints or concerns at this time. Portions of this note were created with voice recognition technology. There may be grammatical, spelling, punctuation or sound alike errors Timing/Duration: today Severity: moderate Modifying Factors: Improves With: nothing Allergies/Adverse Reactions: No Known Drug Allergies Allergy (Verified 05/30/24 02:33) Home Medications: Albuterol 8 gm Mdi Hfa [Ventolin Hfa MDI] 8 gm IH Q4H PRN PRN 12/07/21 [History] Lisinopril/Hydrochlorothiazide [Lisinopril-Hctz 20-12.5 mg Tab] 1 each PO BID 12/07/21 [History] Montelukast Sodium 10 mg [Singulair 10 MG] 10 mg PO DAILY 12/07/21 [History] Tamsulosin HCl 0.4 mg [Flomax 0.4 MG] 0.4 mg PO DAILY 12/07/21 [History] Fluticasone/Umeclidin/Vilanter [Trelegy Ellipta 200-62.5-25] 1 inhaler PO DAILY 05/01/24 [History] Prednisone 10 mg [Deltasone 10 mg] 10 mg PO DAILY 05/01/24 [History] Apixaban [Eliquis] 5 mg PO BID 05/30/24 [History] Metoprolol Tartrate 25 mg [Lopressor 25MG Tab] 25 mg PO BID 05/30/24 [History] Polyethylene Glycol 3350 17 gm [Miralax Powder 17GM PACKET] 17 mg PO DAILY 05/30/24 [History] Vit C/E/Zn/Coppr/Lutein/Zeaxan [Preservision Areds 2 Softgel] 1 tab PO DAILY 05/30/24 [History] Hx Tetanus, Diphtheria Vaccination/Date Given: No Hx Influenza Vaccination/Date Given: Yes Hx Pneumococcal Vaccination/Date Given: No Travel Risk - Emerging Infectious Disease Are you exhibiting symptoms associated with any current EIDs: Yes Symptoms: Cough: New Onset, Fever, Shortness of Breath - Review of Systems Constitutional: No Symptoms, No Fever, No Chills Eyes: No Symptoms Ears, Nose, & Throat: No Symptoms Respiratory: No Symptoms, No Cough, No Dyspnea Cardiac: No Symptoms, No Chest Pain, No Edema, No Syncope Abdominal/Gastrointestinal: No Symptoms, No Abdominal Pain, No Nausea, No Vomiting, No Diarrhea Genitourinary Symptoms: No Symptoms, No Dysuria Musculoskeletal: No Symptoms, No Back Pain, No Neck Pain Skin: No Symptoms, No Rash Neurological: No Symptoms, No Dizziness, No Focal Weakness, No Sensory Changes Psychological: No Symptoms Endocrine: No Symptoms Hematologic/Lymphatic: No Symptoms Immunological/Allergic: No Symptoms All Other Systems: Reviewed and Negative - Past Medical History Pertinent Past Medical History: Yes Neurological History: No Pertinent History ENT History: Cataracts, Macular Degeneration Cardiac History: No Pertinent History, Hypertension Respiratory History: COPD, Emphysema Endocrine Medical History: No Pertinent History Musculoskeletal History: No Pertinent History GI Medical History: No Pertinent History, GERD History: No Pertinent History Psycho-Social History: No Pertinent History Male Reproductive Disorders: Prostate Problems - Past Surgical History Past Surgical History: Yes Neuro Surgical History: No Pertinent History Cardiac: No Pertinent History Respiratory: No Pertinent History Gastrointestinal: No Pertinent History Genitourinary: No Pertinent History Musculoskeletal: No Pertinent History Male Surgical History: No Pertinent History Other Surgical History: colonoscopy - Social History Smoking Status: Current every day smoker How long have you smoked: 50+ Exposure to second hand smoke: Yes Drug Use: none - Social Determinants of Health Will the patient participate in the screening: Declined to provide - Nursing Vital Signs Nursing Vital Signs: Initial Vital Signs Temperature 99.1 F 05/30/24 01:00 Pulse Rate 154 H 05/30/24 01:00 Respiratory Rate 32 H 05/30/24 01:00 Blood Pressure 91/54 05/30/24 01:00 O2 Sat by Pulse Oximetry 95 05/30/24 01:00 Pain Scale Pain Intensity 0 - Physical Exam General Appearance: no apparent distress, alert Eye Exam: PERRL/EOMI, eyes nml inspection, other (Left eyebrow laceration 2 cm) Ears, Nose, Throat Exam: normal ENT inspection, moist mucous membranes Neck Exam: normal inspection, full range of motion Respiratory Exam: normal breath sounds, lungs clear, airway intact, No respirato ry distress Cardiovascular Exam: regular rate/rhythm, normal heart sounds, normal peripheral pulses Gastrointestinal/Abdomen Exam: soft, normal bowel sounds, No tenderness, No mass Back Exam: normal inspection, normal range of motion, No CVA tenderness, No vertebral tenderness Extremity Exam: other (Skin tear at the right elbow, left bicep area. Left forearm and left thumb.) Neurologic Exam: alert, oriented x 3, cooperative, normal mood/affect, sensation nml, No motor deficits Skin Exam: normal color, warm, dry, No rash Lymphatic Exam: No adenopathy SpO2 Interpretation: normal O2 Delivery: Room Air Procedures - Laceration/Wound Repair Left Frontal Time of Procedure: 04:39 Wound Location: Left (Febrile laceration 2 cm) Wound Length (cm): 2 Wound's Depth, Shape: superficial Wound Explored: clean Irrigated: Yes Hibiclens Prep: Yes Anesthesia: 1% Lidocaine Volume Anesthetic (ccs): 3 Wound Debrided: No debridement indicated Wound Repaired With: sutures Suture Size/Type: 5-0, ethilon Number of Sutures: 3 Layer Closure?: No Sterile Dressing Applied?: Yes Splint Applied?: No Sling Applied?: No Progress: 05/30/24 04:40 Patient tolerated procedure well. No intra or postprocedural complications. - Course Nursing assessment & vital signs reviewed: Yes EKG Interpreted by Me: RATE (125), A-fib, NORMAL AXIS, NORMAL INTERVALS, NORMAL QRS - CT Exams Head CT Interpretation: Tele-radiologist Report (No acute intracranial pathology obs erved) Ordered Tests: Active Orders 24 hr Category Date Time Status Order Detailer STAT Care 05/30/24 01:09 Active EKG-ER Only STAT Care 05/30/24 01:09 Active IV Insertion STAT Care 05/30/24 01:09 Active Pulse Oximetry (ED) STAT Care 05/30/24 01:09 Active CHEST 1 VIEW (PORTABLE) Stat Exams 05/30/24 03:12 Completed HEAD WITHOUT CONTRAST [CT] Stat Exams 05/30/24 01:10 Completed CBC W DIFF Stat Lab 05/30/24 02:45 Completed CMP Stat Lab 05/30/24 02:45 Completed Lactic Acid Stat Lab 05/30/24 03:35 Completed Occult Blood-Fecal Screen (Diagnostic) [OB-FECAL SCREEN Lab 05/30/24 04:00 Completed ] Stat TROPONIN Q4H Lab 05/30/24 02:45 Completed Medication Summary Generic Name Dose Route Start Last Admin Trade Name Freq PRN Reason Stop Dose Admin Diltiazem HCl 100 mls @ 5 mls/hr 05/30/24 01:10 05/30/24 04:52 Cardizem Drip 100 Mg/100 Ml D5w IV 06/29/24 01:09 20 mg/hr .Q20H PRN 20 mls/hr HEART RATE/ A-FIB Titration Protocol 5 MG/HR Sodium Chloride 1,000 mls @ 50 mls/hr 05/30/24 04:45 05/30/24 04:43 Sodium Chloride 0.9% 1000 Ml IV 06/29/24 04:44 50 mls/hr .Q20H NICA Administration Discontinued Medications Generic Name Dose Route Start Last Admin Trade Name Freq PRN Reason Stop Dose Admin Diltiazem HCl 15 mg 05/30/24 01:10 05/30/24 01:20 Diltiazem Hcl Iv 5 Mg/Ml Vial IV 05/30/24 01:11 15 mg STAT ONE Administration Diltiazem HCl Confirm 05/30/24 01:19 Diltiazem Hcl Iv 5 Mg/Ml Vial Administered 05/30/24 01:20 Dose 50 mg IV .STK-MED ONE Sodium Chloride 1,000 mls @ 999 mls/hr 05/30/24 01:42 05/30/24 03:40 Sodium Chloride 0.9% 1000 Ml IV 05/30/24 02:42 Infused .Q1H1M STA Infusion Sodium Chloride Confirm 05/30/24 01:42 Sodium Chloride 0.9% 1000 Ml Administered 05/30/24 01:43 Dose 1,000 mls @ ud .ROUTE .STK-MED ONE Sodium Chloride Confirm 05/30/24 01:45 Sodium Chloride 0.9% 1000 Ml Administered 05/30/24 01:46 Dose 1,000 mls @ ud .ROUTE .STK-MED ONE Sodium Chloride Confirm 05/30/24 04:23 Sodium Chloride 0.9% 1000 Ml Administered 05/30/24 04:24 Dose 1,000 mls @ ud .ROUTE .STK-MED ONE Sodium Chloride Confirm 05/30/24 04:27 Sodium Chloride 0.9% 1000 Ml Administered 05/30/24 04:28 Dose 1,000 mls @ ud .ROUTE .STK-MED ONE Sodium Chloride 1,000 mls @ 999 mls/hr 05/30/24 04:29 05/30/24 05:34 Sodium Chloride 0.9% 1000 Ml IV 05/30/24 05:29 Infused .Q1H1M STA Infusion Piperacillin Sod/Tazobactam 100 mls @ 200 mls/hr 05/30/24 04:50 05/30/24 05:30 Sod 3.375 gm/ Sodium Chloride IV 05/30/24 05:19 Infused STAT ONE Infusion Sodium Chloride Confirm 05/30/24 04:53 Sodium Chloride 100ml Mini-Bag Plus Administered 05/30/24 04:54 Dose 100 mls @ ud IV .STK-MED ONE Piperacillin Sod/Tazobactam Sod Confirm 05/30/24 04:53 Piperacillin/Tazobactam Sodium 3.375 Gm Vial Administered 05/30/24 04:54 Dose 3.375 gm IV .STK-MED ONE Piperacillin Sod/Tazobactam Sod Confirm 05/30/24 04:53 Piperacillin/Tazobactam Sodium 3.375 Gm Vial Administered 05/30/24 04:54 Dose 3.375 gm IV .STK-MED ONE Lab/Rad Data: Laboratory Result Diagrams 05/30/24 02:45 05/30/24 02:45 Laboratory Results 05/30/24 05/30/24 05/30/24 Range/Units 04:00 03:35 02:45 WBC (4.23-9.07) x10^3/uL RBC (4.63-6.08) x10^6/uL Hgb (13.7-17.5) g/dL Hct (40.1-51.0) % MCV (79.0-92.2) fL MCH (25.7-32.2) pg MCHC (32.3-36.5) g/dL RDW (11.6-14.4) % Plt Count (163-337) x10^3/uL MPV (9.4-12.4) fL Gran % (34.0-67.9) % Immature Gran % (Auto) (0.001-0.429) % Nucleat RBC Rel Count (0.00-0.2) % Eos # (Auto) (0.04-0.54) x10^3/uL Immature Gran # (Auto) (0.001-0.031) x10^3u/L Absolute Lymphs (auto) (1.32-3.57) x10^3/uL Absolute Monos (auto) (0.30-0.82) x10^3/uL Absolute Nucleated RBC (0.00-0.012) x10^3u/L Lymphocytes % (21.8-53.1) % Monocytes % (5.3-12.2) % Eosinophils % (0.8-7.0) % Basophils % (0.2-1.2) % Absolute Granulocytes (1.78-5.38) x10^3/uL Basophils # (0.01-0.08) x10^3/uL Sodium (135-145) mmol/L Potassium (3.5-5.1) mmol/L Chloride (98-107) mmol/L Carbon Dioxide (22-30) mmol/L Anion Gap (5-15) MEQ/L BUN (9-20) mg/dL Creatinine (0.66-1.25) mg/dL Estimated GFR ML/MIN Glucose (74-106) mg/dL Lactic Acid 2.5 H (0.4-2.0) Calcium (8.4-10.2) mg/dL Total Bilirubin (0.2-1.3) mg/dL AST (17-59) U/L ALT (0-50) U/L Alkaline Phosphatase (38-126) U/L Troponin I (0.000-0.033) ng/mL Serum Total Protein (6.3-8.2) g/dL Albumin (3.5-5.0) g/dL Stl Occult Blood (IFOB) POSITIVE A (NEGATIVE) ABO Group Rh Factor Antibody Screen (NEGATIVE) Crossmatch COMPATIBLE (COMPATIBLE) 05/30/24 05/30/24 05/30/24 Range/Units 02:45 02:45 02:45 WBC (4.23-9.07) x10^3/uL RBC (4.63-6.08) x10^6/uL Hgb (13.7-17.5) g/dL Hct (40.1-51.0) % MCV (79.0-92.2) fL MCH (25.7-32.2) pg MCHC (32.3-36.5) g/dL RDW (11.6-14.4) % Plt Count (163-337) x10^3/uL MPV (9.4-12.4) fL Gran % (34.0-67.9) % Immature Gran % (Auto) (0.001-0.429) % Nucleat RBC Rel Count (0.00-0.2) % Eos # (Auto) (0.04-0.54) x10^3/uL Immature Gran # (Auto) (0.001-0.031) x10^3u/L Absolute Lymphs (auto) (1.32-3.57) x10^3/uL Absolute Monos (auto) (0.30-0.82) x10^3/uL Absolute Nucleated RBC (0.00-0.012) x10^3u/L Lymphocytes % (21.8-53.1) % Monocytes % (5.3-12.2) % Eosinophils % (0.8-7.0) % Basophils % (0.2-1.2) % Absolute Granulocytes (1.78-5.38) x10^3/uL Basophils # (0.01-0.08) x10^3/uL Sodium 132 L (135-145) mmol/L Potassium 4.6 (3.5-5.1) mmol/L Chloride 100 (98-107) mmol/L Carbon Dioxide 23 (22-30) mmol/L Anion Gap 13.3 (5-15) MEQ/L BUN 58 H (9-20) mg/dL Creatinine 0.83 (0.66-1.25) mg/dL Estimated GFR 91.3 ML/MIN Glucose 129 H (74-106) mg/dL Lactic Acid (0.4-2.0) Calcium 7.9 L (8.4-10.2) mg/dL Total Bilirubin 0.40 (0.2-1.3) mg/dL AST 23 (17-59) U/L ALT 20 (0-50) U/L Alkaline Phosphatase 71 (38-126) U/L Troponin I 0.019 (0.000-0.033) ng/mL Serum Total Protein 5.1 L (6.3-8.2) g/dL Albumin 2.7 L (3.5-5.0) g/dL Stl Occult Blood (IFOB) (NEGATIVE) ABO Group O Rh Factor POSITIVE Antibody Screen NEGATIVE (NEGATIVE) Crossmatch COMPATIBLE (COMPATIBLE) 05/30/24 Range/Units 02:45 WBC 14.2 H (4.23-9.07) x10^3/uL RBC 2.43 L (4.63-6.08) x10^6/uL Hgb 7.7 L (13.7-17.5) g/dL Hct 23.5 L (40.1-51.0) % MCV 96.7 H (79.0-92.2) fL MCH 31.7 (25.7-32.2) pg MCHC 32.8 (32.3-36.5) g/dL RDW 13.8 (11.6-14.4) % Plt Count 236 (163-337) x10^3/uL MPV 8.6 L (9.4-12.4) fL Gran % 84.8 H (34.0-67.9) % Immature Gran % (Auto) 1.6 H (0.001-0.429) % Nucleat RBC Rel Count 0.0 (0.00-0.2) % Eos # (Auto) 0.01 L (0.04-0.54) x10^3/uL Immature Gran # (Auto) 0.22 H (0.001-0.031) x10^3u/L Absolute Lymphs (auto) 1.27 L (1.32-3.57) x10^3/uL Absolute Monos (auto) 0.62 (0.30-0.82) x10^3/uL Absolute Nucleated RBC 0.00 (0.00-0.012) x10^3u/L Lymphocytes % 9.0 L (21.8-53.1) % Monocytes % 4.4 L (5.3-12.2) % Eosinophils % 0.1 L (0.8-7.0) % Basophils % 0.1 L (0.2-1.2) % Absolute Granulocytes 12.04 H (1.78-5.38) x10^3/uL Basophils # 0.02 (0.01-0.08) x10^3/uL Sodium (135-145) mmol/L Potassium (3.5-5.1) mmol/L Chloride (98-107) mmol/L Carbon Dioxide (22-30) mmol/L Anion Gap (5-15) MEQ/L BUN (9-20) mg/dL Creatinine (0.66-1.25) mg/dL Estimated GFR ML/MIN Glucose (74-106) mg/dL Lactic Acid (0.4-2.0) Calcium (8.4-10.2) mg/dL Total Bilirubin (0.2-1.3) mg/dL AST (17-59) U/L ALT (0-50) U/L Alkaline Phosphatase (38-126) U/L Troponin I (0.000-0.033) ng/mL Serum Total Protein (6.3-8.2) g/dL Albumin (3.5-5.0) g/dL Stl Occult Blood (IFOB) (NEGATIVE) ABO Group Rh Factor Antibody Screen (NEGATIVE) Crossmatch (COMPATIBLE) - Progress Progress: improved Progress Note: I spoke to Dr. Vargas Dougherty regarding admission however we feel patient will be better served transferred to higher level of care as he has had a significant hemoglobin drop that will likely require a immediate intervention. We at this point we will not likely be able to perform an intervention at this time. Plan of care discussed with patient and . They agree to transfer to an outside facility for further evaluation and treatment. 05/30/24 03:53 73-year-old male presents to our ED for evaluation status post fall at home. Patient hit his head and has a 2 cm laceration to the left eyebrow. Patient complains of shortness of breath. No obvious acute findings on chest x-ray. Hemoglobin is 7.7 which represents a 5.5 g hemoglobin drop in approximately 1 month's time. Patient advises that he has been experiencing dark tarry stools. Upon arrival to our ED patient was in A-fib with RVR. Patient was hypotensive. Cardizem initiated IV fluids initiated as well. No fever. Type and screen completed. 2 L PRBC ordered. Patient will be transferred to [facility]. Patient was auto excepted. The auto excepting physician is . Patient accepted at 4:10 AM. He will be an ED to ED transfer. Patient and agrees to transfer to [facility] for further evaluation and treatment. Donnelly catheter placed. Approximately 400 cc clear urine expressed. UA ordered. Results pending Portions of this note were created with voice recognition technology. There may be grammatical, spelling, punctuation or sound alike errors 05/30/24 04:41 Complexity of problem addressed is moderate acute complicated. Critical care time is 4 hours. Complexity of problem addressed is extensive. Test ordered chest reviewed results analyzed and correlated clinically with history and physical exam. Risk of complication and or risk of morbidity/mortality of patient management is high. Patient requires transfer to higher level of care/hospitalization for further evaluation and treatment. Vital stable. Time spent to transfer patient is approximately 20 minutes. Plan of care established for shared decision making. No social determinants of health present to impede follow-up. Portions of this note were created with voice recognition technology. There may be grammatical, spelling, punctuation or sound alike errors Counseled pt/family regarding: lab results, diagnosis, rad results - Departure Departure Disposition: Transfer Clinical Impression: Fall, Atrial fibrillation with RVR, Skin tear, Eyebrow laceration, Macrocytic anemia, Lactic acidosis, GI bleed Condition: Stable Critical Care Time: No Referrals: SHE SAMS NP [Primary Care Provider] - Follow up/PCP as directed
[2024-05-30] MEDS ORDERED: Cardizem IV 50 MG/10 ML IV ONE (01:19)
[2024-05-30] MEDS ORDERED: CARDIZEM DRIP 100 MG/100 ML D5W 100 ML IV ONE (01:19)
[2024-05-30] MEDS: Cardizem IV 50 MG/10 ML IV ONE (01:20)
[2024-05-30] MEDS: CARDIZEM DRIP 100 MG/100 ML D5W 100 ML IV PRN (01:21)
[2024-05-30] MEDS ORDERED: Sodium Chloride 0.9% 1000 ML 0 ML ONE (01:42)
[2024-05-30] MEDS ORDERED: Sodium Chloride 0.9% 1000 ML 1,000 ML ONE ×4 (01:45→05:35)
[2024-05-30] MEDS: Sodium Chloride 0.9% 1000 ML 1,000 ML IV STA ×2 (02:40→04:34)
--- NOTE | 2024-05-30 02:48 | XRAY ---
CLINICAL HISTORY: trauma COMPARISON: None. TECHNIQUE: Axial non-contrast CT scan of the brain was performed from the skull base to the high parietal region. One of the following dose reduction techniques were utilized for this exam: Automated exposure control, adjustment of the mA and/or kV according to patient size, use of iterative reconstruction. FINDINGS: Brain Parenchyma: Small extracalvarial soft tissue density overlying left frontal bone/midline measures 22 x 3 mm. Image: 25(25/69), and overlying right frontal bone measures 12 x 5 mm Image: 23(23/69) A chronic lacunar infarct seen in left thalamus Few low-attenuation areas are identified in bilateral basal ganglia, bilateral periventricular region and centrum semiovale, one of them in right periventricular region measures 5 x 3 mm. A hypodensity is identified in right occipital lobe, with the possibility of a chronic lacunar infarct or ventricular density of the occipital horn. Mild diffuse hypodensity is identified in the bilateral periventricular deep white matter. No evidence of acute infarct, hemorrhage, or mass effect. Atherosclerotic changes seen in both vertebral, basilar and both internal carotid arteries. Ventricular System: Mild to moderate dilatation of the ventricular system is seen. No evidence of hydrocephalus. Subarachnoid Spaces: Mild to moderate widening of sulci are identified. No evidence of subarachnoid hemorrhage or extra-axial fluid collections. Cerebellum and Brainstem: Normal size A subtle low-attenuation density seen in left cerebellar hemisphere visualized on axial images( image:15(15/69) Orbits: Normal appearance of the globes, optic nerves, and extraocular muscles. No evidence of orbital masses or abnormal density Sinuses: Minimal mucosal thickening in the left ethmoid sinus, raising the possibility of minimal sinusitis. Mild to moderate deviation of nasal septum towards the right side with a bone spur. Mastoid Air Cells: Mild opacification of right mastoid air cells. No evidence of mastoiditis on left side. Skull: Normal skull morphology. Lucency is identified in the tip of the nasal bone and on left side. Image: 16(16/), and Image: 15(15/69) without gross overlying soft tissue swelling. IMPRESSION: 1. No evidence of intracranial hemorrhage, gross territorial infarction or mass-effect. 2. No traumatic brain injury. 3. Small extracalvarial soft tissue density overlying left frontal bone/midline and overlying right frontal bone, may be nonspecific however these need clinical correlation for possibility of soft tissue swelling. 4. Lucency is identified in the tip of the nasal bone and on left side, without gross overlying soft tissue swelling, these may be nonspecific however please correlate clinically. 5. Age-appropriate volume loss of brain parenchyma and bilateral periventricular deep white matter ischemic changes. 6. Subtle low-attenuation density in left cerebellar hemisphere could be nonspecific or Indeterminate/chronic infarct. 7. Chronic lacunar infarct in left thalamus. 8. Few low-attenuation areas in bilateral basal ganglia, bilateral periventricular region and centrum semiovale, likely microvascular ischemic changes/lacunar infarcts. 9. Right-sided mastoiditis. Electronically Signed by: Zane Aguilar MD. (05/30/2024 02:44:16 EDT)
[2024-05-30 02:52] LABS: Absolute Neutrophil Ct (ANC) 12.04 x10^3/uL (1.78-5.38); BASOPHIL % 0.1 % (0.2-1.2); Basophil (Absolute #) 0.02 x10^3/uL (0.01-0.08); Eosinophil % 0.1 % (0.8-7.0); Eosinophil (Absolute #) 0.01 x10^3/uL (0.04-0.54); Hematocrit 23.5 % (40.1-51.0); Hemoglobin 7.7 g/dL (13.7-17.5); IMMATURE GRAN # 0.22 x10^3u/L (0.001-0.031); IMMATURE GRAN % 1.6 % (0.001-0.429); Lymphocyte (Absolute #) 1.27 x10^3/uL (1.32-3.57); Mean Cell Volume 96.7 fL (79.0-92.2); Mean Corpuscular Hemoglobin 31.7 pg (25.7-32.2); Mean Corpuscular Hgb Concent. 32.8 g/dL (32.3-36.5); Mean Platelet Volume 8.6 fL (9.4-12.4); Monocyte (Absolute #) 0.62 x10^3/uL (0.30-0.82); Monocytes % 4.4 % (5.3-12.2); Neutrophil % 84.8 % (34.0-67.9); Platelet Count 236 x10^3/uL (163-337); Red Blood Count 2.43 x10^6/uL (4.63-6.08); Red Cell Distribution Width 13.8 % (11.6-14.4); White Blood Count 14.2 x10^3/uL (4.23-9.07)
[2024-05-30 03:06] LABS: ALBUMIN 2.7 g/dL (3.5-5.0); ANION GAP 13.3 MEQ/L (5-15); BILIRUBIN,TOTAL 0.4 mg/dL (0.2-1.3); Calcium 7.9 mg/dL (8.4-10.2); Creatinine 1 0.83 mg/dL (0.66-1.25); EST GLOMERULAR FILTRATION RATE 91.3 ML/MIN; Potassium 4.6 mmol/L (3.5-5.1); Total Protein 5.1 g/dL (6.3-8.2)
--- NOTE | 2024-05-30 04:16 | XRAY ---
CLINICAL HISTORY: sob COMPARISON: No prior studies are available for comparison. TECHNIQUE: Two X-ray image of the chest are obtained in AP projection. FINDINGS: Pulmonary Parenchyma: Prominent hilar vascular markings suggesting congestion. A zone of ill-defined reticular thickening is seen at the right lower lung zone, which could be representing fibrotic versus bronchiectatic changes with possible associated infective infiltrates. needs correlation with the patient's clinical data and further CT assessment if indicated clinically. Small linear shadows are seen at the left basal lung region, suggestive of atelectatic bands. No evidence of consolidation or collapse No evidence of pleural effusion. Heart and Mediastinum: Heart size and shape are normal. No mediastinal widening or masses. No hilar or mediastinal lymphadenopathy. Atherosclerotic aortic calcifications are seen. Bony Thorax: Bony thorax appears intact without fractures or deformities. Soft Tissues: Soft tissues overlying the chest wall are unremarkable. The overlying ECG leads are seen. A faintly seen linear tubular shadow is seen tranversely overlying the left upper hemithorax, with another smaller one seen at the left axillary region. IMPRESSION: 1. Prominent hilar vascular markings suggesting congestion. 2. Zone of ill-defined reticular thickening is seen at the right lower lung zone, which could be representing fibrotic versus bronchiectatic changes with possible associated infective infiltrates, needs correlation with the patient's clinical data and further CT assessment if indicated clinically. 3. Few left basal atelectatic bands. 4. Atherosclerotic aortic calcifications. Electronically Signed by: Zane Aguilar MD. (05/30/2024 04:12:18 EDT)
[2024-05-30 04:24] LABS: IFOB TEST RESULTS POSITIVE (NEGATIVE)
[2024-05-30 04:34] LABS: ABO TYPING O; Antibody Screen NEGATIVE (NEGATIVE); RH TYPING POSITIVE
[2024-05-30 04:37] LABS: CROSS MATCH (PRBC) COMPATIBLE (COMPATIBLE)
[2024-05-30 04:42] LABS: CROSS MATCH (PRBC) COMPATIBLE (COMPATIBLE)
[2024-05-30] MEDS: Sodium Chloride 0.9% 1000 ML 1,000 ML IV SCH (04:43)
[2024-05-30] MEDS ORDERED: PIPERACILLIN/TAZOBACTAM IV ONE ×2 (04:53)
[2024-05-30] MEDS ORDERED: Sodium Chloride 100ML MINI-BAG PLUS 100 ML IV ONE (04:53)
[2024-05-30] MEDS: PIPERACILLIN/TAZOBACTAM 3.375 GM in Sodium Chloride 100ML MINI-BAG PLUS 100 ML IV ONE (05:00)
[2024-05-30 05:51] VITALS: TEMP 98.2; O2SAT 100
[2024-05-30 06:05] VITALS: BP 70/48; PULSE 151; RESP 28
== END 2024-05-30 05:52 | disposition short-term general hospital (02) ==
LOC: ED 00:55
DX: S01.112A Laceration without foreign body of left eyelid and periocular area, initial encounter (principal); S51.011A Laceration without foreign body of right elbow, initial encounter; S41.112A Laceration without foreign body of left upper arm, initial encounter; S51.812A Laceration without foreign body of left forearm, initial encounter; S61.012A Laceration without foreign body of left thumb without damage to nail, initial encounter; W18.30XA Fall on same level, unspecified, initial encounter; I48.20 Chronic atrial fibrillation, unspecified; D53.9 Nutritional anemia, unspecified; E87.20 Acidosis, unspecified; K92.2 Gastrointestinal hemorrhage, unspecified; I95.9 Hypotension, unspecified; Z79.01 Long term (current) use of anticoagulants; Z79.52 Long term (current) use of systemic steroids; Z79.899 Other long term (current) drug therapy; Z72.0 Tobacco use; Z99.81 Dependence on supplemental oxygen
CPT/HCPCS: 12011; 36415; 36430; 51702; 70450; 71045; 80053; 83605; 84484; 85025; 86850; 86900; 86901; 86922; 93005; 93041; 94760; 96360; 96361; 96365; 96366; 96375; 99291; 99292; G0328; P9016; 82274; 96374; 99285